=== PATIENT | male | born 1985 | race Caucasian/White ===

== ENCOUNTER 2016-08-06 16:55 | Emergency (ER) | payer OTHER ==
[2016-08-06 17:03] VITALS: BMI 35.2
--- NOTE | 2016-08-06 17:59 | PDOC ---
History of Present Illness - General History Source: Patient Exam Limitations: No Limitations - History of Present Illness Initial Comments: 08/06/16 17:55 31-year-old male with history of diabetes and peripheral neuropathy presents with wound to the base of his right first toe which he noted today. Patient states sees a subscription crew leader every 2 weeks and had no wound at that time but states due to the neuropathy he is unsure if he bumped it versus slowly developed it over the last 2 weeks. Patient states glucose today ranged anywhere from 210- 270 but denies any fever, chills, radiation of pain, or drainage from the wound. Patient does state mild redness to the side of first toe. Timing/Duration: unsure Severity: mild Associated Symptoms: reports: denies symptoms <Tiana Gill - Last Filed: 08/06/16 17:55> <Sophia Blackmon - Last Filed: 08/06/16 20:49> - General Chief Complaint: Wound Stated Complaint: WOUND INFECTION Time Seen by Provider: 08/06/16 17:26 Past History - Past Medical History Anemia: No Asthma: Yes Cancer: No Cardiac Disorders: No CVA: No COPD: No CHF: No Dementia: No Diabetes: Yes GI Disorders: No Disorders: No HTN: No Hypercholesterolemia: Yes Liver Disease: No Psychiatric Problems: Yes (depression/anxiety) Suicide Attempt (Hx): No Seizures: No Thyroid Disease: No - Surgical History Abdominal Surgery: No Appendectomy: No Cardiac Surgery: No Cholecystectomy: No Lung Surgery: No Neurologic Surgery: No Orthopedic Surgery: Yes (07/14 right knee arthroscopy) - Immunization History Immunization Up to Date: Yes - Psycho/Social/Smoking Cessation Hx Anxiety: Yes Suicidal Ideation: No Smoking Status: No Smoking History: Former smoker Have you smoked in the past 12 months: No Number of Cigarettes Smoked Daily: 40 If you are a former smoker, when did you quit?: 2009 Information on smoking cessation initiated: No Hx Alcohol Use: No Drug/Substance Use Hx: No Substance Use Type: None Hx Substance Use Treatment: No Patient Lives Alone: No Lives with/in: spouse/SO <iTana Gill - Last Filed: 08/06/16 17:55> <Sophia Blackmon - Last Filed: 08/06/16 20:49> - Past Medical History Allergies/Adverse Reactions: Allergies Allergy/AdvReac Type Severity Reaction Status Date / Time No Known Allergies Allergy Verified 08/06/16 17:00 Home Medications: Ambulatory Orders Atorvastatin Ca [Lipitor] 80 mg PO HS 01/03/15 Aspirin [Aspirin EC] 81 mg PO DAILY 03/02/15 Escitalopram Oxalate [Lexapro -] 20 mg PO DAILY 07/25/15 Lisinopril 10 mg PO DAILY 07/25/15 Bupropion HCl [Wellbutrin Xl] 300 mg PO DAILY 06/03/16 Quetiapine Fumarate [Seroquel] 300 mg PO DAILY 06/03/16 Cephalexin [Keflex] 500 mg PO Q8H #30 capsule 08/06/16 Review of Systems - Review of Systems Able to Perform ROS?: Yes Constitutional: No: Symptoms Reported Cardiac (ROS): No: Symptoms Reported Musculoskeletal: No: Symptoms Reported Integumentary: Yes: See HPI Neurological: No: Symptoms reported Endocrine: No: Symptoms Reported Hematologic/Lymphatic: No: Symptoms Reported <Tiana Gill - Last Filed: 08/06/16 17:55> *Physical Exam - Vital Signs Last Vital Signs Temp Pulse Resp BP Pulse Ox 98.4 F 91 H 18 135/84 97 08/06/16 17:00 08/06/16 17:00 08/06/16 17:00 08/06/16 17:00 08/06/16 17:00 - Physical Exam General Appearance: Yes: Nourished, Appropriately Dressed. No: Apparent Distress Vascular Pulses: Dorsalis-Pedis (R): 2+, Doralis-Pedis (L): 2+ Extremity: positive: Normal Capillary Refill, Normal Range of Motion. negative : Normal Inspection (atient with calloused erythematous area over the base of right first toe with crust to Center. mild erythema to the lateral aspect of right first toe. No increased warmth no palpable fluctuance) Neurologic: positive: Motor Strength 5/5 (ambulatory) <Tiana Gill - Last Filed: 08/06/16 17:55> - Vital Signs Last Vital Signs Temp Pulse Resp BP Pulse Ox 98.4 F 91 H 18 135/84 97 08/06/16 17:00 08/06/16 17:00 08/06/16 17:00 08/06/16 17:00 08/06/16 17:00 <Sophia Blackmon - Last Filed: 08/06/16 20:49> ED Treatment Course - RADIOLOGY Radiology Studies Ordered: Category Date Time Status TOE(S) RIGHT [RAD] Stat Radiology 08/06/16 17:54 Ordered <Tiana Gill - Last Filed: 08/06/16 17:55> - LABORATORY CBC & Chemistry Diagram: 08/06/16 18:33 08/06/16 18:33 - ADDITIONAL ORDERS Additional order review: Laboratory Results 08/06/16 08/06/16 08/06/16 18:33 18:33 18:32 Sodium 138 Potassium 4.4 Chloride 98 Carbon Dioxide 33 H Anion Gap 7 L BUN 16 D Creatinine 0.8 Creat Clearance w eGFR > 60 Random Glucose 177 H D Lactic Acid 1.456 Calcium 9.2 Total Bilirubin 0.2 D AST 40 H D ALT 72 D Alkaline Phosphatase 83 Total Protein 7.1 Albumin 3.7 Urine Color Ltyellow Urine Appearance Clear Urine pH 5.0 Ur Specific [place] 1.024 Urine Protein Negative Urine Glucose (UA) 3+ H Urine Ketones Negative Urine Blood Negative Urine Nitrite Negative Urine Bilirubin Negative Urine Urobilinogen Negative Ur Leukocyte Esterase Negative 08/06/16 18:33 RBC 5.09 MCV 82.1 MCHC 32.9 RDW 14.6 MPV 8.6 Neutrophils % 63.2 Lymphocytes % 25.9 D Monocytes % 6.9 Eosinophils % 2.9 Basophils % 1.1 <Sophia Blackmon - Last Filed: 08/06/16 20:49> Medical Decision Making - Medical Decision Making 08/06/16 17:58 Patient with elevated glucose and right toe wound concerning for infection. Patient ordered for septic workup including an x-ray to rule out osteomyelitis. <Tiana Gill - Last Filed: 08/06/16 17:55> - Medical Decision Making 08/06/16 20:41 FOOT X-RAY NEG FOR FRACTURE/OSTEOMYELITIS/GAS. LOCALIZED CELLULITIS INFECTION NOTED. PATIENT HAS APPOINTMENT WITH STEAM ROOM ATTENDANT TOMORROW. PLAN: KEFLEX Q8HRS X 10 DAYS STEAM ROOM ATTENDANT F/U TOMORROW. PATIENT AGREES WITH PLAN. <Sophia Blackmon - Last Filed: 08/06/16 20:49> *DC/Admit/Observation/Transfer <Tiana Gill - Last Filed: 08/06/16 17:55> - Discharge Dispostion Admit: No <Sophia Blackmon - Last Filed: 08/06/16 20:49> Diagnosis at time of Disposition: Toe pain, right Cellulitis Qualifiers: Site of cellulitis: extremity Site of cellulitis of extremity: toe Laterality: right Qualified Code(s): L03.031 - Cellulitis of right toe - Discharge Dispostion Disposition: HOME Condition at time of disposition: Stable - Prescriptions Prescriptions: Cephalexin [Keflex] 500 mg PO Q8H #30 capsule - Patient Instructions Printed Discharge Instructions: DI for Cellulitis -- Adult Additional Instructions: FOLLOW UP WITH STEAM ROOM ATTENDANT DISCUSSED TOMORROW. TAKE YOU MEDICATIONS PRESCRIBED. PLEASE WEAR SLIPPERS OR SHOES AT ALL TIMES. DO NOT WALK BAREFOOT. RETURN IF YOUR SYMPTOMS WORSEN. Print Language: GREENLANDIC
[2016-08-06 18:56] LABS: BASOPHIL 1.1 % (0-2.0); EOSINOPHIL 2.9 % (0-4.5); MCHC 32.9 g/dl (32.0-35.9); MEAN CELL VOLUME 82.1 fl (80-96); MEAN PLT VOLUME 8.6 fl (7.5-11.1); NEUTROPHILS 63.2 % (42.8-82.8); PLATELET COUNT 236 K/MM3 (134-434); RDW 14.6 % (11.9-15.9)
[2016-08-06 19:32] LABS: URINE APPEARANCE CLEAR; URINE BILIRUBIN NEGATIVE (NEGATIVE); URINE BLOOD NEGATIVE (NEGATIVE); URINE COLOR LTYELLOW; URINE GLUCOSE (UA) 3+ (NEGATIVE); URINE KETONE NEGATIVE (NEGATIVE); URINE LEUK ESTERASE NEGATIVE (NEGATIVE); URINE NITRITE NEGATIVE (NEGATIVE); URINE PROTEIN NEGATIVE (NEGATIVE); URINE UROBILINOGEN NEGATIVE E.U./dl (0.2-1.0)
[2016-08-06 19:43] LABS: ALBUMIN 3.7 g/dl (3.4-5.0); ALK PHOS 83 U/L (45-117); ANION GAP 7 (8-16); BILIRUBIN,TOTAL 0.2 mg/dL (0.2-1.0); CALCIUM 9.2 mg/dL (8.5-10.1); CO2 33 mmol/L (21-32); CREATININE 0.8 mg/dL (0.7-1.3); GLUCOSE,RANDOM 177 mg/dL (74-106); SGOT/AST 40 U/L (15-37); SGPT/ALT 72 U/L (12-78); TOT PROT 7.1 g/dl (6.4-8.2)
[2016-08-06] MEDS ORDERED: CEPHALEXIN MONOHYDRATE 500 MG CAPSULE (UD) PO ONE (20:49)
[2016-08-06] MEDS ORDERED: CEPHALEXIN MONOHYDRATE 250 MG CAPSULE (FP) ONE (21:05)
[2016-08-06 21:14] VITALS: BP 132/80; PULSE 88; TEMP 97.9
== END 2016-08-06 21:11 | disposition home or self-care (01) ==
LOC: JER 16:55
DX: L03.031 Cellulitis of right toe (principal); E11.9 Type 2 diabetes mellitus without complications; E78.00 Pure hypercholesterolemia, unspecified; F41.8 Other specified anxiety disorders; J45.909 Unspecified asthma, uncomplicated
CPT/HCPCS: 36415; 73660-TC; 80053; 81003; 83605; 85025; 87040; 99282-25

== ENCOUNTER 2016-12-17 17:19 | Inpatient (IN) | payer OTHER ==
--- NOTE | 2016-12-17 17:22 | PDOC ---
Rapid Medical Evaluation Time Seen by Provider: 12/17/16 17:20 Medical Evaluation: Allergies Allergy/AdvReac Type Severity Reaction Status Date / Time No Known Allergies Allergy Verified 12/17/16 17:20 12/17/16 17:20 I have performed a brief in-person evaluation of this patient. The patient presents with a chief complaint of: diabetic/ foot ulcer/ sent by software design manager Pertinent physical exam findings: right foot great toe ulcer since May 2016 The patient will proceed to the ED for further evaluation. Pt sent into ER by [address] Justice for right great toe ulcer. Glucose: 201 today x1h ago (checked at home) [facility] Justice: [facility]/ Dr. Monroy sent pt in for IV abx and ?admission Pt has been hospitalized for his right Great toe x6 months ago. Dx with Right great toe Diabetic/Ulcer after stepping on a nail CBC/diff Chem Lactic acid Right foot xray
[2016-12-17 17:24] VITALS: BMI 36.6
[2016-12-17 17:49] LABS: BASOPHIL 1.1 % (0-2.0); EOSINOPHIL 2.4 % (0-4.5); MCH 27.9 pg (25.7-33.7); MCHC 32.9 g/dl (32.0-35.9); MEAN CELL VOLUME 84.6 fl (80-96); MEAN PLT VOLUME 8.3 fl (7.5-11.1); NEUTROPHILS 70.3 % (42.8-82.8); PLATELET COUNT 278 K/MM3 (134-434); WHITE BLOOD COUNT 10.6 K/mm3 (4.0-10.0)
[2016-12-17 18:28] LABS: ALBUMIN 4.2 g/dl (3.4-5.0); ALK PHOS 101 U/L (45-117); ANION GAP 7 (8-16); BILIRUBIN,TOTAL 0.3 mg/dL (0.2-1.0); CALCIUM 9.7 mg/dL (8.5-10.1); CO2 33 mmol/L (21-32); CREATININE 1.1 mg/dL (0.7-1.3); GLUCOSE,RANDOM 161 mg/dL (74-106); SGOT/AST 25 U/L (15-37); SGPT/ALT 41 U/L (12-78); TOT PROT 8.1 g/dl (6.4-8.2)
[2016-12-17] MEDS ORDERED: SODIUM CHLORIDE 0.9% 1000 ML INFUS.BAG IV ONE (19:58)
[2016-12-17] MEDS: VANCOMYCIN 2,000 MG in DEXTROSE 5%-WATER - 500 ML IVPB ONE ×2 (20:23→20:52)
[2016-12-17] MEDS ORDERED: ACETAMINOPHEN 1000 MG/100 ML VIAL (NON FORMULARY) IVPB ONE (21:16)
--- NOTE | 2016-12-17 21:16 | PDOC ---
History of Present Illness - General Chief Complaint: Wound Infection Stated Complaint: TOE PAIN Time Seen by Provider: 12/17/16 17:20 - History of Present Illness Initial Comments: 12/17/16 22:11 CHIEF COMPLAINT: diabetic foot ulcer HISTORY OF PRESENT ILLNESS: 31 yo M with hx of DM, HLD, HTN sent to ED by supervisor home energy consultant for concern of osteomyelitis. Patient reports that he stepped on a nail at the end of last year and was admitted for cellulitis and abscess of the R toe, but it has worsened and now he has an ulcer at the bottom of his R toe. He denies any fever, chills, nausea, vomiting, diarrhea. No recent travel or sick contacts. PAST MEDICAL HISTORY: as per HPI FAMILY HISTORY: Denies SOCIAL HISTORY: Former smoker, quit 2009. Denies alcohol, illicit drug use. SURGICAL HISTORY: Denies ALLERGIES: No known drug allergies REVIEW OF SYSTEMS General/Constitutional: Denies fever or chills. Cardiovascular: Denies chest pain or shortness of breath. Respiratory: Denies cough, wheezing, or hemoptysis. Gastrointestinal: Denies nausea, vomiting, diarrhea or constipation. Genitourinary: Denies dysuria, frequency, or change in urination. Musculoskeletal: Pain to R foot secondary to diabetic ulcer. Skin and breasts: Denies rash or easy bruising. Neurologic: Denies headache, vertigo, loss of consciousness, or loss of sensation. PHYSICAL EXAM General Appearance: Well-appearing, appropriately dressed. No apparent distress. HEENT: EOMI, PERRLA. Respiratory/Chest: Lungs CTAB. Cardiovascular: RRR. S1, S2. Gastrointestinal/Abdominal: Normal bowel sounds. Abdomen soft, non-distended. No tenderness or rebound tenderness. No organomegaly, pulsatile mass, guarding , hernia, hepatomegaly, splenomegaly. Lymphatic: No adenopathy, tenderness. Musculoskeletal/Extremities: 2 cm x 2 cm ulcer to plantar aspect of R hallux with erythema, mild edema. Normal inspection. FROM of all extremities, normal capillary refill. Pelvis Stable. No CVA tenderness. No tenderness to extremities, pedal edema, swelling, erythema or deformity. Integumentary: Appropriate color, dry, warm. No cyanosis, erythema, jaundice or rash Neurologic: aquatics director II-XII intact. Fully oriented, alert. Appropriate mood/affect. Motor strength 5/5. No appreciable EOM palsy, facial droop or sensory deficit. Past History - Past Medical History Allergies/Adverse Reactions: Allergies Allergy/AdvReac Type Severity Reaction Status Date / Time No Known Allergies Allergy Verified 12/17/16 20:06 Home Medications: Ambulatory Orders Escitalopram Oxalate [Lexapro -] 20 mg PO DAILY 07/25/15 Bupropion HCl [Wellbutrin Xl] 300 mg PO DAILY 06/03/16 Quetiapine Fumarate [Seroquel] 200 mg PO DAILY 06/03/16 Canagliflozin [Invokana] 100 mg PO DAILY 12/17/16 Insulin NPH Human Isophane [Humulin N] 0 unit SQ DAILY 12/17/16 Lamotrigine 200 mg PO DAILY 12/17/16 Loratadine 10 mg PO DAILY 12/17/16 Metformin HCl [Metformin HCl ER] 1,000 mg PO DAILY 12/17/16 Methotrexate [Mexate -] 2.5 mg PO Q7D 12/17/16 Omeprazole 40 mg PO DAILY 12/17/16 Prednisone [Deltasone -] 2.5 mg PO DAILY 12/17/16 Propranolol HCl 80 mg PO DAILY 12/17/16 Ranitidine HCl 300 mg PO DAILY 12/17/16 Rosuvastatin [Crestor -] 20 mg PO DAILY 12/17/16 Anemia: No Asthma: Yes Cancer: No Cardiac Disorders: No CVA: No COPD: No CHF: No Dementia: No Diabetes: Yes (IDDM/INSULIN PUMP) GI Disorders: No Disorders: No HTN: No Hypercholesterolemia: Yes Liver Disease: No Psychiatric Problems: Yes (depression/anxiety/BIPOLAR) Suicide Attempt (Hx): No Seizures: No Thyroid Disease: No Other medical history: R.A - Surgical History Abdominal Surgery: No Appendectomy: No Cardiac Surgery: No Cholecystectomy: No Lung Surgery: No Neurologic Surgery: No Orthopedic Surgery: Yes (07/14 right knee arthroscopy) - Immunization History Immunization Up to Date: Yes - Psycho/Social/Smoking Cessation Hx Anxiety: Yes Suicidal Ideation: No Smoking Status: No Smoking History: Never smoked Have you smoked in the past 12 months: No Number of Cigarettes Smoked Daily: 40 If you are a former smoker, when did you quit?: 2009 Information on smoking cessation initiated: No Hx Alcohol Use: No Drug/Substance Use Hx: No Substance Use Type: None Hx Substance Use Treatment: No *Physical Exam - Vital Signs Last Vital Signs Temp Pulse Resp BP Pulse Ox 98.0 F 101 H 18 132/88 100 12/17/16 17:21 12/17/16 17:21 12/17/16 17:21 12/17/16 17:21 12/17/16 19:25 ED Treatment Course - LABORATORY CBC & Chemistry Diagram: 12/17/16 17:00 12/17/16 17:00 - ADDITIONAL ORDERS Additional order review: Laboratory Results 12/17/16 12/17/16 17:30 17:00 Sodium 140 Potassium 4.3 Chloride 100 Carbon Dioxide 33 H Anion Gap 7 L BUN 17 Creatinine 1.1 D Creat Clearance w eGFR > 60 Random Glucose 161 H Lactic Acid 2.1 H* Calcium 9.7 Total Bilirubin 0.3 D AST 25 D ALT 41 D Alkaline Phosphatase 101 D Total Protein 8.1 Albumin 4.2 12/17/16 17:00 RBC 5.08 MCV 84.6 MCHC 32.9 RDW 15.0 MPV 8.3 Neutrophils % 70.3 Lymphocytes % 19.6 D Monocytes % 6.6 Eosinophils % 2.4 Basophils % 1.1 - Medications Given in the ED: ED Medications Discontinued Medications Generic Name Dose Route Start Last Admin Trade Name Freq PRN Reason Stop Dose Admin Sodium Chloride 1,000 ml 12/17/16 19:58 12/17/16 20:23 Normal Saline - IV 12/17/16 19:59 1,000 ml ONCE ONE Administration Medical Decision Making - Medical Decision Making 12/17/16 22:11 31 yo M with hx of DM sent to ED by supervisor home energy consultant for concern of osteomyelitis. VS remarkable for tachycardia of 101. -CBC, CMP, lactic acid, blood cultures, wound culture ordered in RME -X-ray of R foot WBC 10.6, lactic acid 2.1 -IVF -Vancomycin 1500mg IVPB Right foot x-ray results: Soft tissue swelling in right first toe with soft tissue defect, posteriorly consistent with clinical history of an ulcer. No gross bone destruction or periosteal elevation identified. MRI of right foot would be study of choice to r/o osteo. Read by Malick Torres MD. -Zosyn 3.375 IVPB Discussed case with admitting MD Beasley who recommends inpatient admission for r /o osteo. Will consult ID and podiatry. 12/18/16 04:23 *DC/Admit/Observation/Transfer Diagnosis at time of Disposition: Diabetic foot ulcer Qualifiers: Diabetic foot ulcer location: toe Diabetes mellitus type: type 2 Laterality: left Non-pressure ulcer stage: unspecified non-pressure ulcer stage Qualified Code(s): E11.621 - Type 2 diabetes mellitus with foot ulcer Cellulitis Qualifiers: Site of cellulitis: extremity Site of cellulitis of extremity: toe Laterality: left Qualified Code(s): L03.032 - Cellulitis of left toe Sepsis Qualifiers: Sepsis type: sepsis due to unspecified organism Qualified Code(s): A41.9 - Sepsis, unspecified organism - Discharge Dispostion Admit: Yes - Referrals
[2016-12-17] MEDS ORDERED: PIPERACILLIN/TAZOB 3.375 GM/50 ML PRE-DOCKED IV ONE (21:53)
--- NOTE | 2016-12-17 23:15 | PDOC ---
*Physical Exam - Vital Signs Last Vital Signs Temp Pulse Resp BP Pulse Ox 98.0 F 101 H 18 132/88 100 12/17/16 17:21 12/17/16 17:21 12/17/16 17:21 12/17/16 17:21 12/17/16 19:25 ED Treatment Course - LABORATORY CBC & Chemistry Diagram: 12/17/16 17:00 12/17/16 17:00 - ADDITIONAL ORDERS Additional order review: Laboratory Results 12/17/16 12/17/16 17:30 17:00 Sodium 140 Potassium 4.3 Chloride 100 Carbon Dioxide 33 H Anion Gap 7 L BUN 17 Creatinine 1.1 D Creat Clearance w eGFR > 60 Random Glucose 161 H Lactic Acid 2.1 H* Calcium 9.7 Total Bilirubin 0.3 D AST 25 D ALT 41 D Alkaline Phosphatase 101 D Total Protein 8.1 Albumin 4.2 12/17/16 17:00 RBC 5.08 MCV 84.6 MCHC 32.9 RDW 15.0 MPV 8.3 Neutrophils % 70.3 Lymphocytes % 19.6 D Monocytes % 6.6 Eosinophils % 2.4 Basophils % 1.1 - Medications Given in the ED: ED Medications Discontinued Medications Generic Name Dose Route Start Last Admin Trade Name Freq PRN Reason Stop Dose Admin Vancomycin HCl 2,000 mg/ 500 mls @ 250 mls/hr 12/17/16 20:05 12/17/16 20:52 Dextrose IVPB 12/17/16 22:04 250 mls/hr ONCE ONE Administration Protocol Sodium Chloride 1,000 ml 12/17/16 19:58 12/17/16 20:23 Normal Saline - IV 12/17/16 19:59 1,000 ml ONCE ONE Administration Medical Decision Making - Medical Decision Making 12/17/16 23:14 agree with care from MILVIA Bui *DC/Admit/Observation/Transfer Diagnosis at time of Disposition: Diabetic foot ulcer Qualifiers: Diabetic foot ulcer location: toe Diabetes mellitus type: type 2 Laterality: left Non-pressure ulcer stage: unspecified non-pressure ulcer stage Qualified Code(s): E11.621 - Type 2 diabetes mellitus with foot ulcer Cellulitis Qualifiers: Site of cellulitis: extremity Site of cellulitis of extremity: toe Laterality: left Qualified Code(s): L03.032 - Cellulitis of left toe Sepsis Qualifiers: Sepsis type: sepsis due to unspecified organism Qualified Code(s): A41.9 - Sepsis, unspecified organism - Referrals Referrals: Hailee Carpenter [Primary Care Provider] - - Patient Instructions - Post Discharge Activity
[2016-12-17] MEDS ORDERED: PIPERACILLIN/TAZOB 3.375 GM 50 ML IVPB ONE (23:22)
[2016-12-17] MEDS: SODIUM CHLORIDE 1,000 ML IV SCH (23:31)
[2016-12-17] MEDS: HEPARIN NA (PORCINE) 5,000 UNITS/ML 1ML VIAL SQ SCH (23:32)
[2016-12-17] MEDS ORDERED: HEPARIN NA (PORCINE) 5,000 UNITS/ML 1ML VIAL ONE (23:33)
[2016-12-18] MEDS: SODIUM CHLORIDE 1,000 ML IV SCH ×2 (06:00→17:43)
[2016-12-18] MEDS: metFORMIN HCL 500 MG TABLET (FP) PO SCH (06:51)
[2016-12-18 07:24] LABS: MCH 28.6 pg (25.7-33.7); MEAN CELL VOLUME 84.3 fl (80-96); PLATELET COUNT 195 K/MM3 (134-434); RDW 15.1 % (11.9-15.9); WHITE BLOOD COUNT 7.8 K/mm3 (4.0-10.0)
[2016-12-18 08:26] LABS: ALBUMIN 3.1 g/dl (3.4-5.0); ALK PHOS 75 U/L (45-117); ANION GAP 8 (8-16); BILIRUBIN,TOTAL 0.3 mg/dL (0.2-1.0); CALCIUM 8.2 mg/dL (8.5-10.1); CO2 29 mmol/L (21-32); CREATININE 0.6 mg/dL (0.7-1.3); GLUCOSE,RANDOM 165 mg/dL (74-106); SGOT/AST 23 U/L (15-37); SGPT/ALT 32 U/L (12-78); TOT PROT 6.1 g/dl (6.4-8.2)
--- NOTE | 2016-12-18 09:20 | PN ---
Progress Note (short form) - Note Progress Note: ID consult dictated imp/reccd 31 year old man with diabetes since 2003, history of right great toe ulcer since May when he stepped on a nail- he was admitted here at [facility] and discharged with picc line on rocephin for 4 weeks and po amox for 2 weeks (group b strep and enterococcus in wound) He reports that ulcer stopped draining but never closed. He is followed by podiatry at [facility] and has been going weekly. over the last one month the toe has gotten more swollen and has started draining blood and pus from the ulcer. He reports the toe is painful as well. no fevers or chills no oral antibiotics diabetic toe infection r/o osteomyelitis/cellulitis suggest MRI esr/crp podiatry to see received vancomycin and zosyn in ED cultures pending continue vanco/zosyn Problem List - Problems (1) Diabetic foot ulcer Code(s): E11.621 - TYPE 2 DIABETES MELLITUS WITH FOOT ULCER L97.509 - NON-PRESSURE CHRONIC ULCER OTH PRT UNSP FOOT W UNSP SEVERITY Qualifiers: Diabetic foot ulcer location: toe Diabetes mellitus type: type 2 Laterality: left Non-pressure ulcer stage: unspecified non-pressure ulcer stage Qualified Code(s): E11.621 - Type 2 diabetes mellitus with foot ulcer ; L97.509 - Non-pressure chronic ulcer of other part of unspecified foot with unspecified severity (2) Osteomyelitis due to type 2 diabetes mellitus Code(s): E11.69 - TYPE 2 DIABETES MELLITUS WITH OTHER SPECIFIED COMPLICATION M86.9 - OSTEOMYELITIS, UNSPECIFIED
[2016-12-18] MEDS: ESCITALOPRAM OXALATE 20 MG TABLET (FP) PO SCH (09:34)
[2016-12-18] MEDS: RANITIDINE HCL 150 MG TABLET (FP) PO SCH (09:34)
[2016-12-18] MEDS: PANTOPRAZOLE 40 MG TABLET (FP) PO SCH (09:34)
[2016-12-18] MEDS: LORATADINE 10 MG TABLET PO SCH (09:34)
[2016-12-18] MEDS: HEPARIN NA (PORCINE) 5,000 UNITS/ML 1ML VIAL SQ SCH ×2 (09:34→21:47)
[2016-12-18] MEDS: PIPERACILLIN/TAZOB 3.375 GM/50 ML PRE-DOCKED IVPB SCH ×3 (09:35→17:42)
--- NOTE | 2016-12-18 09:51 | HP ---
Admitting History and Physical - Primary Care Physician PCP: Gonzalo Ashley - Admission Chief Complaint: WORSENING RIGHT TOE ULCER History of Present Illness: 31 Y/O MALE HISTORY OF DIABETIC/LIPIDEMIA/RA/OBESE HERE WITH WORSENING RIGHT TOE ULCER, HAS NOT IMPROVED. HE HAS BEEN SEEING A UTILITY BILL COLLECTOR AT [facility] WHO SENT HIM HERE FOR TREATMENT. History Source: Patient - Past Medical History Cardiovascular: Yes: Hyperlipdemia. No: AFIB, Aneurysm, Aortic Insufficiency, Aortic Stenosis, CAD, CHF, Deep Vein Thrombosis, HTN, [place], Mitral Insufficiency, Mitral Stenosis, Murmur, Pulmonary Hypertension, Other Pulmonary: Yes: Asthma Rheumatology: Yes: Rheumatoid Arthritis Endocrine: Yes: Diabetes Mellitus - Past Surgical History Past Surgical History: Yes: None - Smoking History Smoking history: Never smoked Have you smoked in the past 12 months: No Aproximately how many cigarettes per day: 40 If you are a former smoker, when did you quit?: 2009 - Alcohol/Substance Use Hx Alcohol Use: No - Social History ADL: Independent History of Recent Travel: No Home Medications - Allergies Allergies/Adverse Reactions: Allergies Allergy/AdvReac Type Severity Reaction Status Date / Time No Known Allergies Allergy Verified 12/17/16 20:06 - Home Medications Home Medications: Ambulatory Orders Escitalopram Oxalate [Lexapro -] 20 mg PO DAILY 07/25/15 Bupropion HCl [Wellbutrin Xl] 300 mg PO DAILY 06/03/16 Quetiapine Fumarate [Seroquel] 200 mg PO DAILY 06/03/16 Canagliflozin [Invokana] 100 mg PO DAILY 12/17/16 Insulin NPH Human Isophane [Humulin N] 0 unit SQ DAILY 12/17/16 Lamotrigine 200 mg PO DAILY 12/17/16 Loratadine 10 mg PO DAILY 12/17/16 Metformin HCl [Metformin HCl ER] 1,000 mg PO DAILY 12/17/16 Methotrexate [Mexate -] 2.5 mg PO Q7D 12/17/16 Omeprazole 40 mg PO DAILY 12/17/16 Prednisone [Deltasone -] 2.5 mg PO DAILY 12/17/16 Propranolol HCl 80 mg PO DAILY 12/17/16 Ranitidine HCl 300 mg PO DAILY 12/17/16 Rosuvastatin [Crestor -] 20 mg PO DAILY 12/17/16 Family Disease History - Family Disease History Family Disease History: Heart Disease: Mother Review of Systems - Review of Systems Constitutional: reports: Night Sweats Eyes: reports: No Symptoms HENT: reports: No Symptoms Neck: reports: No Symptoms Cardiovascular: reports: No Symptoms Respiratory: reports: No Symptoms Gastrointestinal: reports: Diarrhea Genitourinary: reports: No Symptoms Musculoskeletal: reports: Decreased ROM, Joint Pain, Joint Swelling, Muscle Pain , Muscle Weakness Integumentary: reports: Wound Neurological: reports: No Symptoms Endocrine: reports: No Symptoms Hematology/Lymphatic: reports: No Symptoms Physical Examination Vital Signs: Vital Signs Temperature 98.7 F 12/18/16 09:05 Pulse Rate 90 12/18/16 09:05 Respiratory Rate 16 12/18/16 09:05 Blood Pressure 146/83 12/18/16 09:05 O2 Sat by Pulse Oximetry (%) 98 12/18/16 00:56 Constitutional: Yes: Mild Distress Eyes: Yes: WNL HENT: Yes: WNL Neck: Yes: WNL Cardiovascular: Yes: WNL Respiratory: Yes: WNL Gastrointestinal: Yes: WNL Renal/: Yes: WNL Musculoskeletal: Yes: Joint Stiffness Extremities: Yes: Deformity Peripheral Pulses WNL: Yes Integumentary: Yes: Erythema, Pressure Ulcer, Skin Tear Wound/Incision: Yes: Open to air, Dressing Removed, Excoriated, Unapproximated Neurological: Yes: WNL ...Motor Strength: WNL Psychiatric: Yes: WNL Labs: CBC, BMP 12/18/16 06:30 12/18/16 06:30 Problem List - Problems (1) Cellulitis Code(s): L03.90 - CELLULITIS, UNSPECIFIED Qualifiers: Site of cellulitis: extremity Site of cellulitis of extremity: toe Laterality: left Qualified Code(s): L03.032 - Cellulitis of left toe (2) Diabetic foot ulcer Code(s): E11.621 - TYPE 2 DIABETES MELLITUS WITH FOOT ULCER L97.509 - NON-PRESSURE CHRONIC ULCER OTH PRT UNSP FOOT W UNSP SEVERITY Qualifiers: Diabetic foot ulcer location: toe Diabetes mellitus type: type 2 Laterality: left Non-pressure ulcer stage: unspecified non-pressure ulcer stage Qualified Code(s): E11.621 - Type 2 diabetes mellitus with foot ulcer ; L97.509 - Non-pressure chronic ulcer of other part of unspecified foot with unspecified severity Assessment/Plan IV ABX ID CONSULT MRI R/O OSTEOMYELITIS DIABETES SSI/EDUCATION WOUND CARE PODIATRY EVAL
[2016-12-18] MEDS ORDERED: predniSONE 2.5 MG TABLET PO SCH (10:00)
[2016-12-18] MEDS: ACETAMINOPHEN 325 MG TABLET (FP) PO PRN (10:41)
[2016-12-18 11:48] LABS: CHOLESTEROL 150 mg/dL (50-200); LDL CHOLESTEROL (ONLY SJRH) 66 mg/dL (5-100)
[2016-12-18] MEDS: QUEtiapine FUMARATE 200 MG TABLET PO SCH (12:07)
[2016-12-18] MEDS: lamoTRIgine 100 MG TABLET (FP) PO SCH (12:07)
[2016-12-18] MEDS: predniSONE 5 MG TABLET (UD) PO SCH (12:07)
--- NOTE | 2016-12-18 12:10 | CONSULT ---
Consult - text type - Consultation Consultation Note: Podiatry Consultation: 31 year old IDDM M presents for admission after being sent to ED by his outside motion picture printer for worsening R great toe ulcer and redness/swelling. Patient states that he developed wound May 2016 after stepping on a nail while walking barefoot at home. Wound has progressively worsened and for the past few days has had increased redness/swelling. Denies F/V/N/C/SOB/CP. Currently afebrile, VSS. PMHx: IDDM, HLP, rheumatoid arthritis Meds: noted in chart ALL: NKMA RICHARD: R foot: pedal pulses 1/4, TG wnl, CFT brisk to all toes. There is a R great toe plantar IPJ ulcer with fibrogranular wound base, hyperkeratotic borders, probes approximately 0.7 cm, no probing to bone, no purulence, no fluctuance, mild periwound erythema, no ascending cellulitis, no signs of active infection. No tenderness to palpation. Blood Cx: pending Wound Cx: pending WBC: 7.8 R foot XR: no evidence of osteomyelitis Imp: 31 year old IDDM with R great toe DM ulcer 1. IV abx per ID 2. Rx santyl + DSD R foot 3. Partial WB R heel with surgical shoe 4. Agree with MRI R foot 5. May need PICC if MRI (+) 6. Needs tight glycemic control 7. Thanks for the courtesy of this consult. Praveena Shaffer DPM
[2016-12-18] MEDS: VANCOMYCIN 1,250 MG in DEXTROSE 5%-WATER - 250 ML IVPB SCH ×2 (12:17→21:47)
--- NOTE | 2016-12-18 13:11 | CONS ---
DATE OF CONSULTATION: DATE OF DICTATION: 12/18/2016 REQUESTING PHYSICIAN: Mil Beasley MD HISTORY OF PRESENT ILLNESS: This is a 31-year-old man with the history of diabetes. He has been diabetic since 2003. He is a nonsmoker. Back in May, he stepped on a nail and he subsequently presented a week later to the hospital with an ulcer on the plantar surface of his right first toe. He was admitted for several days in the hospital. He had an MRI, which was suggestive of possible early osteomyelitis. Wound culture grew group B strep and Enterococcus and he was seen by Podiatry as well, who felt he did not require any operative debridement. He was discharged home with a PICC line on 4 weeks of ceftriaxone and 2 weeks of oral amoxicillin. He was followed up as an outpatient by his workers compensation examiner, who is at [facility], who he reports seeing weekly. He reports the drainage resolved from the toe, but the ulcer never closed. He was seeing his workers compensation examiner, who apparently has routinely been debriding the ulcer and about a month ago, he noted that same toe became more swollen and painful. About 2 weeks ago, he started having drainage once again. He describes a bloody purulent drainage, as well as associated pain over the course of the last month. He has had no fevers or chills, otherwise he felt well. About a month ago, he was diagnosed with rheumatoid arthritis and started on low-dose prednisone 2.5 mg a day and weekly methotrexate. ALLERGIES: He has no known drug allergies. MEDICATIONS: His medications as an outpatient include: 1. Lamotrigine. 2. Propranolol. 3. Prednisone 2.5 mg daily. 4. Methotrexate weekly. 5. Crestor. 6. Loratadine. 7. Invokana. 8. Metformin. 9. Insulin, which he has insulin pump. 10. Seroquel. 11. Omeprazole. 12. Ranitidine. 13. Lexapro. 14. Wellbutrin. PAST MEDICAL HISTORY: Notable for diabetes since 2003. He has a history of hyperlipidemia and depression. He has a history of mild asthma. Recent diagnosis of rheumatoid arthritis. SURGICAL HISTORY: Notable for he has had right knee arthroscopy for removal of a foreign body and he has had surgery on his left hand 4th and 5th fingers for trigger finger. FAMILY HISTORY: Notable for diabetes on both sides of his family. SOCIAL HISTORY: He is a former smoker. He quit in 2009. He lives at home with his and 3 children. He has not worked in the last year. There has been no recent travel. He has had no sick contacts. PHYSICAL EXAMINATION: General: He is awake and alert. Vitals: Temperature is 98.7, pulse of 90, blood pressure 146/83, respiratory rate 16. He weighs 270 pounds. O2 saturation is 98% on room air. HEENT: He is normocephalic. His eyes are anicteric. Neck: His neck is supple. Lungs: Clear to auscultation. Heart: Regular rate and rhythm. Abdomen: Soft, nontender. Extremities: Warm. He has palpable pulses. He has swelling diffusely of his right great toe with a plantar ulcer on the sole, which has minimal blood tinged drainage. There is no associated odor. LABORATORY: His labs are notable for a white count of 10.6 on admission, today 7.8; hemoglobin 13.4, platelets are 195. Labs this morning: BUN and creatinine are 12 and 0.6; the glucose of 165, lactic acid was 2.1 on admission. Blood and wound cultures are all pending at this time. X-ray of the foot show soft tissue swelling, but no gross bony destruction. In summary, this is a 31-year-old man with a chronic plantar ulcer that has been now associated with 1 month of swelling of the toe and pain associated with erythema and drainage for the last 2 weeks. Concerns would be recurrent osteomyelitis, as well as some mild cellulitis. I would suggest we repeat an MRI of the foot, obtain a sed rate, CRP. I would have Podiatry see him. He received vancomycin and Zosyn in the emergency room with cultures pending. I would continue the same antibiotic coverage. Further recommendations to follow. Lynda [id number] cc: Mil Beasley MD
[2016-12-18] MEDS ORDERED: ROSUVASTATIN CA 10 MG TABLET (FP) ONE (21:21)
[2016-12-18] MEDS ORDERED: PT OWN MED DRAWER 7, Y5N ONE (21:22)
[2016-12-18] MEDS: ROSUVASTATIN CA 20 MG TABLET (FP) PO SCH (21:48)
[2016-12-19] MEDS: PIPERACILLIN/TAZOB 3.375 GM/50 ML PRE-DOCKED IVPB SCH ×3 (01:27→17:20)
[2016-12-19] MEDS: SODIUM CHLORIDE 1,000 ML IV SCH ×3 (06:35→23:30)
[2016-12-19] MEDS: metFORMIN HCL 500 MG TABLET (FP) PO SCH (06:55)
[2016-12-19] MEDS: ACETAMINOPHEN 325 MG TABLET (FP) PO PRN ×2 (08:34→15:39)
[2016-12-19] MEDS ORDERED: PT OWN MED DRAWER 7, Y5N ONE ×3 (08:58→23:15)
[2016-12-19] MEDS: LORATADINE 10 MG TABLET PO SCH (09:01)
[2016-12-19] MEDS: predniSONE 5 MG TABLET (UD) PO SCH (09:02)
[2016-12-19] MEDS: HEPARIN NA (PORCINE) 5,000 UNITS/ML 1ML VIAL SQ SCH ×2 (09:04→21:15)
[2016-12-19] MEDS: ESCITALOPRAM OXALATE 20 MG TABLET (FP) PO SCH (09:04)
[2016-12-19] MEDS: PANTOPRAZOLE 40 MG TABLET (FP) PO SCH (09:04)
[2016-12-19] MEDS: RANITIDINE HCL 150 MG TABLET (FP) PO SCH (09:05)
--- NOTE | 2016-12-19 09:16 | PN ---
Progress Note, Physician Chief Complaint: ID Vancomycin Zosyn No complaints - Current Medication List Current Medications: Active Medications Acetaminophen (Tylenol -) 650 mg PO Q4H PRN PRN Reason: FEVER OR PAIN Last Admin: 12/19/16 08:34 Dose: 650 mg Bupropion HCl (Wellbutrin Xl -) 300 mg PO DAILY [facility] Last Admin: 12/18/16 12:07 Dose: 300 mg Collagenase (Santyl -) 1 applic TP DAILY [facility] Escitalopram Oxalate (Lexapro -) 20 mg PO DAILY [facility] Last Admin: 12/19/16 09:04 Dose: 20 mg Heparin Sodium (Porcine) (Heparin -) 5,000 unit SQ BID [facility] Last Admin: 12/19/16 09:04 Dose: 5,000 unit Sodium Chloride (Normal Saline -) 1,000 mls @ 100 mls/hr IV ASDIR [facility] Last Admin: 12/19/16 06:35 Dose: 100 mls/hr Vancomycin HCl 1,250 mg/ (Dextrose) 250 mls @ 166.667 mls/hr IVPB BID [facility] PRN Reason: Protocol Last Admin: 12/18/16 21:47 Dose: 166.667 mls/hr Lamotrigine (Lamictal -) 200 mg PO DAILY [facility] Last Admin: 12/18/16 12:07 Dose: 200 mg Loratadine (Claritin -) 10 mg PO DAILY [facility] Last Admin: 12/19/16 09:01 Dose: 10 mg Metformin HCl (Glucophage -) 1,000 mg PO AM [facility] Last Admin: 12/19/16 06:55 Dose: 1,000 mg Pantoprazole Sodium (Protonix -) 40 mg PO DAILY [facility] Last Admin: 12/19/16 09:04 Dose: 40 mg Piperacillin Sod/Tazobactam Sod (Zosyn 3.375gm Ivpb (Pre-Docked)) 3.375 gm IVPB Q8H-IV [facility] PRN Reason: Protocol Last Admin: 12/19/16 01:27 Dose: 3.375 gm Prednisone (Deltasone -) 2.5 mg PO DAILY [facility] Last Admin: 12/19/16 09:02 Dose: 2.5 mg Propranolol HCl (Inderal La -) 80 mg PO DAILY [facility] Last Admin: 12/19/16 09:03 Dose: 80 mg Quetiapine Fumarate (Seroquel -) 200 mg PO DAILY [facility] Last Admin: 12/18/16 12:07 Dose: 200 mg Ranitidine HCl (Zantac -) 300 mg PO DAILY [facility] Last Admin: 12/19/16 09:05 Dose: 300 mg Rosuvastatin Calcium (Crestor -) 20 mg PO HS [facility] Last Admin: 12/18/16 21:48 Dose: 20 mg - Objective Vital Signs: Vital Signs Temperature 97.7 F 12/19/16 07:39 Pulse Rate 73 12/19/16 07:39 Respiratory Rate 20 12/19/16 07:39 Blood Pressure 102/58 12/19/16 07:39 O2 Sat by Pulse Oximetry (%) 98 12/18/16 21:00 Constitutional: Yes: Well Nourished, No Distress HENT: Yes: WNL, Atraumatic Neck: Yes: WNL, Supple Respiratory: Yes: WNL, Regular, CTA Bilaterally Extremities: Yes: Other (Toe ulcer) Labs: CBC, BMP 12/18/16 06:30 12/18/16 06:30 Assessment/Plan Microbiology 12/17/16 17:30 Blood - Peripheral Venous Blood Culture - Preliminary NO GROWTH OBTAINED AFTER 24 HOURS, INCUBATION TO CONTINUE FOR 4 DAYS. 12/17/16 17:00 Blood - Peripheral Venous Blood Culture - Preliminary NO GROWTH OBTAINED AFTER 24 HOURS, INCUBATION TO CONTINUE FOR 4 DAYS. Laboratory Tests 12/18/16 12/18/16 12/19/16 06:30 06:30 07:00 WBC 7.8 Hgb 13.4 Hct 39.3 Plt Count 195 D ESR BUN 12 D Creatinine 0.6 L D C-Reactive Protein Pending 12/19/16 07:00 WBC Hgb Hct Plt Count ESR Pending BUN Creatinine C-Reactive Protein Assessment SSTI ruling out osteomyelitis Plan Antibiotics Vanco Zosyn ESR CRP MRI Wound culture Delphine FELIX
[2016-12-19] MEDS: lamoTRIgine 100 MG TABLET (FP) PO SCH (10:15)
[2016-12-19] MEDS: QUEtiapine FUMARATE 200 MG TABLET PO SCH (10:16)
[2016-12-19] MEDS: VANCOMYCIN 1,250 MG in DEXTROSE 5%-WATER - 250 ML IVPB SCH ×2 (10:17→21:14)
[2016-12-19 12:14] LABS: TROPONIN I < 0.02 ng/ml (0.00-0.05)
--- NOTE | 2016-12-19 12:24 | EKG ---
Test Reason : Blood Pressure : / mmHG Vent. Rate : 080 BPM Atrial Rate : 080 BPM P-R Int : 184 ms QRS Dur : 084 ms QT Int : 370 ms P-R-T Axes : 058 078 067 degrees QTc Int : 426 ms NORMAL SINUS RHYTHM NORMAL ECG WHEN COMPARED WITH ECG OF 03-JUN-2016 14:17, NO SIGNIFICANT CHANGE WAS FOUND Confirmed by NIKOLAY MCMAHON MD ([id number]) on 12/19/2016 12:23:54 PM Referred By: GONZALEZ ROBERTS Confirmed By:NIKOLAY MCMAHON MD
[2016-12-19] MEDS: COLLAGENASE CLOSTRIDIUM HIST. 30 GRAMS TUBE TP SCH (15:10)
--- NOTE | 2016-12-19 16:01 | CON.CARD ---
Cardiology Consult (text) - Consultation Consultation Note: CC: CP 31 yo with h/o HL, HTN, obesity, IDDM, RA, asthma p/w worsening LE wound, hospital course complicated by CP has had right great toe ulcer since May when he stepped on a nail - s/p IV abx. Since treatment in May ulcer stopped draining but never closed. He is followed by podiatry at [facility] and has been going weekly. Over the last one month the toe has gotten more swollen and painful and has started draining blood and pus. This morning began experiencing chest heaviness at rest, constant ever since. Had longstanding history of symptoms of atypical chest discomfort. Last stress test for evaluation of these symptoms was 2012. Currently experiencing non- exertional symptoms every couple of months (possible increase in frequency from priors). Poor functional status: no exercise. Limiting SOSA/heart racing with walking up flight of stairs. Can walk up 7 stairs before needing to stop for these sx's in addtion to needing to stop due to pain in LE. no f/c/s, n/v/d, h/a, cough, congestion, rashes, visual disturbances no orthopnea pnd, le edema, palps, dizziness, bleeding. pmhx/pshx: per hpi Social hx: former smoker fam hx: mother heart disease ros: per hpi Ambulatory Orders Escitalopram Oxalate [Lexapro -] 20 mg PO DAILY 07/25/15 Bupropion HCl [Wellbutrin Xl] 300 mg PO DAILY 06/03/16 Quetiapine Fumarate [Seroquel] 200 mg PO DAILY 06/03/16 Canagliflozin [Invokana] 100 mg PO DAILY 12/17/16 Insulin NPH Human Isophane [Humulin N] 0 unit SQ DAILY 12/17/16 Lamotrigine 200 mg PO DAILY 12/17/16 Loratadine 10 mg PO DAILY 12/17/16 Metformin HCl [Metformin HCl ER] 1,000 mg PO DAILY 12/17/16 Methotrexate [Mexate -] 2.5 mg PO Q7D 12/17/16 Omeprazole 40 mg PO DAILY 12/17/16 Prednisone [Deltasone -] 2.5 mg PO DAILY 12/17/16 Propranolol HCl 80 mg PO DAILY 12/17/16 Ranitidine HCl 300 mg PO DAILY 12/17/16 Rosuvastatin [Crestor -] 20 mg PO DAILY 12/17/16 Current Medications Acetaminophen (Tylenol -) 650 mg PO Q4H PRN PRN Reason: FEVER OR PAIN Last Admin: 12/19/16 15:39 Dose: 650 mg Bupropion HCl (Wellbutrin Xl -) 300 mg PO DAILY [facility] Last Admin: 12/19/16 11:56 Dose: 300 mg Collagenase (Santyl -) 1 applic TP DAILY [facility] Last Admin: 12/19/16 15:10 Dose: 1 applic Escitalopram Oxalate (Lexapro -) 20 mg PO DAILY [facility] Last Admin: 12/19/16 09:04 Dose: 20 mg Heparin Sodium (Porcine) (Heparin -) 5,000 unit SQ BID [facility] Last Admin: 12/19/16 09:04 Dose: 5,000 unit Sodium Chloride (Normal Saline -) 1,000 mls @ 100 mls/hr IV ASDIR [facility] Last Admin: 12/19/16 06:35 Dose: 100 mls/hr Vancomycin HCl 1,250 mg/ (Dextrose) 250 mls @ 166.667 mls/hr IVPB BID [facility] PRN Reason: Protocol Last Admin: 12/19/16 10:17 Dose: 166.667 mls/hr Lamotrigine (Lamictal -) 200 mg PO DAILY [facility] Last Admin: 12/19/16 10:15 Dose: 200 mg Loratadine (Claritin -) 10 mg PO DAILY [facility] Last Admin: 12/19/16 09:01 Dose: 10 mg Metformin HCl (Glucophage -) 1,000 mg PO AM [facility] Last Admin: 12/19/16 06:55 Dose: 1,000 mg Pantoprazole Sodium (Protonix -) 40 mg PO DAILY [facility] Last Admin: 12/19/16 09:04 Dose: 40 mg Piperacillin Sod/Tazobactam Sod (Zosyn 3.375gm Ivpb (Pre-Docked)) 3.375 gm IVPB Q8H-IV [facility] PRN Reason: Protocol Last Admin: 12/19/16 10:17 Dose: 3.375 gm Prednisone (Deltasone -) 2.5 mg PO DAILY [facility] Last Admin: 12/19/16 09:02 Dose: 2.5 mg Propranolol HCl (Inderal La -) 80 mg PO DAILY [facility] Last Admin: 12/19/16 09:03 Dose: 80 mg Quetiapine Fumarate (Seroquel -) 200 mg PO DAILY [facility] Last Admin: 12/19/16 10:16 Dose: 200 mg Ranitidine HCl (Zantac -) 300 mg PO DAILY [facility] Last Admin: 12/19/16 09:05 Dose: 300 mg Rosuvastatin Calcium (Crestor -) 20 mg PO HS [facility] Last Admin: 12/18/16 21:48 Dose: 20 mg Vital Signs - 24 hr 12/18/16 12/18/16 12/19/16 17:12 21:00 07:39 Temperature 97.9 F 97.7 F Pulse Rate 73 73 Respiratory 20 20 Rate Blood Pressure 107/59 102/58 O2 Sat by Pulse 98 Oximetry (%) 12/19/16 12/19/16 12/19/16 08:25 10:15 15:40 Temperature 98.2 F 98.3 F Pulse Rate 76 79 82 Respiratory 18 18 Rate Blood Pressure 137/81 146/88 112/52 O2 Sat by Pulse Oximetry (%) Intake & Output 12/17/16 12/18/16 12/19/16 12/20/16 07:59 07:59 07:59 07:59 Intake Total 200 3900 800 Balance 200 3900 800 Weight 270 lb nad, calm jvd flat, neck supple ctab, nl effort rrr nl s1, s2 no mrg no ttp of sternum + bs soft nt nd ext with trace edema. no cyanosis/clubbing aaox3 no carotid bruits diminished dp/pt no jaundice, + diaphoresis. CBC, BMP 12/18/16 06:30 12/18/16 06:30 Laboratory Tests 12/17/16 12/18/16 12/18/16 17:30 06:30 08:10 ESR Hemoglobin A1c % Lactic Acid 2.1 H* Total Bilirubin 0.3 AST 23 ALT 32 D Alkaline Phosphatase 75 D Creatine Kinase Troponin I C-Reactive Protein Albumin 3.1 L D Triglycerides 350 H Cholesterol 150 HDL Cholesterol 39 L 12/18/16 12/19/16 12/19/16 08:10 07:00 07:00 ESR 22 H Hemoglobin A1c % 10.5 H Lactic Acid Total Bilirubin AST ALT Alkaline Phosphatase Creatine Kinase Troponin I C-Reactive Protein 1.4 H Albumin Triglycerides Cholesterol HDL Cholesterol 12/19/16 11:45 ESR Hemoglobin A1c % Lactic Acid Total Bilirubin AST ALT Alkaline Phosphatase Creatine Kinase 100 Troponin I < 0.02 C-Reactive Protein Albumin Triglycerides Cholesterol HDL Cholesterol ekg wnl, no ischemic changes stress 2013: 10 METS, no ischemic ekg changes. nl perfusion, nl EF. 31 yo with h/o HL, HTN, obesity, IDDM, RA, childhood asthma p/w worsening LE wound, hospital course complicated by CP CP - atypical for cardiac pain, but patient with significant risk factors and low functional capacity to adequately assess for exertional sx's. Echo pending. Will plan on further evaluation with cardiac stress testing. - Martha neg x 1, EKG wnl. Con't HUMBERTO - ntg prn for CP. Con't propanolol. statin. Would start ASA htn - currently intermittently low on propanolol in setting of infection. Monitor closely HL - statin.
--- NOTE | 2016-12-19 16:58 | PN ---
Progress Note, Physician Chief Complaint: C/O CHEST PAIN THIS AM STAT EKG AND STAT CARDIAC LABS ORDERED CARDIO CONULT AND ECHO ALL ORDERED - Current Medication List Current Medications: Active Medications Acetaminophen (Tylenol -) 650 mg PO Q4H PRN PRN Reason: FEVER OR PAIN Last Admin: 12/19/16 15:39 Dose: 650 mg Bupropion HCl (Wellbutrin Xl -) 300 mg PO DAILY [facility] Last Admin: 12/19/16 11:56 Dose: 300 mg Collagenase (Santyl -) 1 applic TP DAILY [facility] Last Admin: 12/19/16 15:10 Dose: 1 applic Escitalopram Oxalate (Lexapro -) 20 mg PO DAILY [facility] Last Admin: 12/19/16 09:04 Dose: 20 mg Heparin Sodium (Porcine) (Heparin -) 5,000 unit SQ BID [facility] Last Admin: 12/19/16 09:04 Dose: 5,000 unit Sodium Chloride (Normal Saline -) 1,000 mls @ 100 mls/hr IV ASDIR [facility] Last Admin: 12/19/16 06:35 Dose: 100 mls/hr Vancomycin HCl 1,250 mg/ (Dextrose) 250 mls @ 166.667 mls/hr IVPB BID [facility] PRN Reason: Protocol Last Admin: 12/19/16 10:17 Dose: 166.667 mls/hr Lamotrigine (Lamictal -) 200 mg PO DAILY [facility] Last Admin: 12/19/16 10:15 Dose: 200 mg Loratadine (Claritin -) 10 mg PO DAILY [facility] Last Admin: 12/19/16 09:01 Dose: 10 mg Metformin HCl (Glucophage -) 1,000 mg PO AM [facility] Last Admin: 12/19/16 06:55 Dose: 1,000 mg Pantoprazole Sodium (Protonix -) 40 mg PO DAILY [facility] Last Admin: 12/19/16 09:04 Dose: 40 mg Piperacillin Sod/Tazobactam Sod (Zosyn 3.375gm Ivpb (Pre-Docked)) 3.375 gm IVPB Q8H-IV [facility] PRN Reason: Protocol Last Admin: 12/19/16 10:17 Dose: 3.375 gm Prednisone (Deltasone -) 2.5 mg PO DAILY [facility] Last Admin: 12/19/16 09:02 Dose: 2.5 mg Propranolol HCl (Inderal La -) 80 mg PO DAILY [facility] Last Admin: 12/19/16 09:03 Dose: 80 mg Quetiapine Fumarate (Seroquel -) 200 mg PO DAILY [facility] Last Admin: 12/19/16 10:16 Dose: 200 mg Ranitidine HCl (Zantac -) 300 mg PO DAILY [facility] Last Admin: 12/19/16 09:05 Dose: 300 mg Rosuvastatin Calcium (Crestor -) 20 mg PO HS [facility] Last Admin: 12/18/16 21:48 Dose: 20 mg - Objective Vital Signs: Vital Signs Temperature 98.3 F 12/19/16 15:40 Pulse Rate 82 12/19/16 15:40 Respiratory Rate 18 12/19/16 15:40 Blood Pressure 112/52 12/19/16 15:40 O2 Sat by Pulse Oximetry (%) 98 12/18/16 21:00 Constitutional: Yes: Mild Distress Eyes: Yes: WNL HENT: Yes: WNL Neck: Yes: WNL Cardiovascular: Yes: WNL Respiratory: Yes: WNL Gastrointestinal: Yes: WNL Genitourinary: Yes: WNL Musculoskeletal: Yes: Joint Swelling, Muscle Weakness Extremities: Yes: Deformity Edema: No Peripheral Pulses WNL: Yes Integumentary: Yes: Pressure Ulcer Wound/Incision: Yes: Dressing Dry and Intact Neurological: Yes: Pre-Existing Deficit ...Motor Strength: LLE, RLE Psychiatric: Yes: Other Labs: CBC, BMP 12/18/16 06:30 12/18/16 06:30 Problem List - Problems (1) Cellulitis Code(s): L03.90 - CELLULITIS, UNSPECIFIED Qualifiers: Site of cellulitis: extremity Site of cellulitis of extremity: toe Laterality: left Qualified Code(s): L03.032 - Cellulitis of left toe (2) Diabetic foot ulcer Code(s): E11.621 - TYPE 2 DIABETES MELLITUS WITH FOOT ULCER L97.509 - NON-PRESSURE CHRONIC ULCER OTH PRT UNSP FOOT W UNSP SEVERITY Qualifiers: Diabetic foot ulcer location: toe Diabetes mellitus type: type 2 Laterality: left Non-pressure ulcer stage: unspecified non-pressure ulcer stage Qualified Code(s): E11.621 - Type 2 diabetes mellitus with foot ulcer ; L97.509 - Non-pressure chronic ulcer of other part of unspecified foot with unspecified severity (3) Chest pain in adult Assessment/Plan: R/O ACUTE CORONARY SYNDROME Code(s): R07.9 - CHEST PAIN, UNSPECIFIED Assessment/Plan CARDIAC ENZYMES NEGATIVE CARDIO EVAL RISKS OF [place] CONCERNING, ECHO AND EKG ORDERED LIPID AND A1C HIGH ABOVE LIMITS, ENDOCRINE CONSULT ART SPECIALIST FOR EVAL AND EDUCATION WOUND CARE/MRI IV ABX
[2016-12-19] MEDS: INSULIN SLIDING SCALE (NOVOLOG) 1 VIAL SQ SCH ×2 (17:24→21:24)
[2016-12-19] MEDS ORDERED: ROSUVASTATIN CA 10 MG TABLET (FP) ONE (21:03)
[2016-12-19] MEDS: ROSUVASTATIN CA 20 MG TABLET (FP) PO SCH (21:14)
[2016-12-19] MEDS ORDERED: INSULIN (NOVOLOG) ASPART 100 UNITS/ML 10ML VIAL ONE (21:24)
[2016-12-20] MEDS: PIPERACILLIN/TAZOB 3.375 GM/50 ML PRE-DOCKED IVPB SCH ×4 (01:23→17:27)
--- NOTE | 2016-12-20 07:51 | PN ---
Progress Note, Physician Chief Complaint: CARDIOLOGY WORKUP IN PROGRESS WITH ECHO LABS AND EKG NO ACUTE CHANGES NO CHEST PAIN TODAY - Current Medication List Current Medications: Active Medications Acetaminophen (Tylenol -) 650 mg PO Q4H PRN PRN Reason: FEVER OR PAIN Last Admin: 12/19/16 15:39 Dose: 650 mg Aspirin (Ecotrin -) 81 mg PO DAILY [facility] Bupropion HCl (Wellbutrin Xl -) 300 mg PO DAILY [facility] Last Admin: 12/19/16 11:56 Dose: 300 mg Collagenase (Santyl -) 1 applic TP DAILY [facility] Last Admin: 12/19/16 15:10 Dose: 1 applic Escitalopram Oxalate (Lexapro -) 20 mg PO DAILY [facility] Last Admin: 12/19/16 09:04 Dose: 20 mg Heparin Sodium (Porcine) (Heparin -) 5,000 unit SQ BID [facility] Last Admin: 12/19/16 21:15 Dose: 5,000 unit Sodium Chloride (Normal Saline -) 1,000 mls @ 100 mls/hr IV ASDIR [facility] Last Admin: 12/19/16 23:30 Dose: Not Given Vancomycin HCl 1,250 mg/ (Dextrose) 250 mls @ 166.667 mls/hr IVPB BID [facility] PRN Reason: Protocol Last Admin: 12/19/16 21:14 Dose: 166.667 mls/hr Insulin Aspart (Novolog Vial Sliding Scale -) 1 vial SQ ACHS [facility] PRN Reason: Protocol Last Admin: 12/19/16 21:24 Dose: 6 units Lamotrigine (Lamictal -) 200 mg PO DAILY [facility] Last Admin: 12/19/16 10:15 Dose: 200 mg Loratadine (Claritin -) 10 mg PO DAILY [facility] Last Admin: 12/19/16 09:01 Dose: 10 mg Metformin HCl (Glucophage -) 1,000 mg PO AM [facility] Last Admin: 12/19/16 06:55 Dose: 1,000 mg Nitroglycerin (Nitrostat -) 0.3 mg SL Q5M PRN PRN Reason: FOR CHEST PAIN Pantoprazole Sodium (Protonix -) 40 mg PO DAILY [facility] Last Admin: 12/19/16 09:04 Dose: 40 mg Piperacillin Sod/Tazobactam Sod (Zosyn 3.375gm Ivpb (Pre-Docked)) 3.375 gm IVPB Q8H-IV [facility] PRN Reason: Protocol Last Admin: 12/20/16 01:23 Dose: 3.375 gm Prednisone (Deltasone -) 2.5 mg PO DAILY [facility] Last Admin: 12/19/16 09:02 Dose: 2.5 mg Propranolol HCl (Inderal La -) 80 mg PO DAILY [facility] Last Admin: 12/19/16 09:03 Dose: 80 mg Quetiapine Fumarate (Seroquel -) 200 mg PO DAILY [facility] Last Admin: 12/19/16 10:16 Dose: 200 mg Ranitidine HCl (Zantac -) 300 mg PO DAILY [facility] Last Admin: 12/19/16 09:05 Dose: 300 mg Rosuvastatin Calcium (Crestor -) 20 mg PO HS [facility] Last Admin: 12/19/16 21:14 Dose: 20 mg - Objective Vital Signs: Vital Signs Temperature 98.3 F 12/20/16 06:35 Pulse Rate 70 12/20/16 06:35 Respiratory Rate 20 12/20/16 06:35 Blood Pressure 121/70 12/20/16 06:35 O2 Sat by Pulse Oximetry (%) 98 12/19/16 21:00 Constitutional: Yes: No Distress Eyes: Yes: WNL HENT: Yes: WNL Neck: Yes: WNL Cardiovascular: Yes: WNL Respiratory: Yes: WNL Gastrointestinal: Yes: WNL Genitourinary: Yes: WNL Musculoskeletal: Yes: Muscle Weakness Extremities: Yes: Deformity Edema: Yes Edema: RLE: 1+ Peripheral Pulses WNL: Yes Integumentary: Yes: Pressure Ulcer Wound/Incision: Yes: Dressing Dry and Intact Neurological: Yes: Unsteady Gait ...Motor Strength: LLE, RLE Psychiatric: Yes: WNL Problem List - Problems (1) Cellulitis Code(s): L03.90 - CELLULITIS, UNSPECIFIED Qualifiers: Site of cellulitis: extremity Site of cellulitis of extremity: toe Laterality: left Qualified Code(s): L03.032 - Cellulitis of left toe (2) Diabetic foot ulcer Code(s): E11.621 - TYPE 2 DIABETES MELLITUS WITH FOOT ULCER L97.509 - NON-PRESSURE CHRONIC ULCER OTH PRT UNSP FOOT W UNSP SEVERITY Qualifiers: Diabetic foot ulcer location: toe Diabetes mellitus type: type 2 Laterality: left Non-pressure ulcer stage: unspecified non-pressure ulcer stage Qualified Code(s): E11.621 - Type 2 diabetes mellitus with foot ulcer ; L97.509 - Non-pressure chronic ulcer of other part of unspecified foot with unspecified severity (3) Chest pain in adult Code(s): R07.9 - CHEST PAIN, UNSPECIFIED Assessment/Plan IV ABX MRI R/O OSTEOMEYLITIS RIGHT LOWER EXTREMITY/FOOT ID F/U CARDIAC WORKUP ANGINA?
[2016-12-20] MEDS: INSULIN SLIDING SCALE (NOVOLOG) 1 VIAL SQ SCH ×4 (08:09→22:52)
[2016-12-20] MEDS: metFORMIN HCL 500 MG TABLET (FP) PO SCH (08:09)
[2016-12-20 08:28] LABS: BASOPHIL 0.3 % (0-2.0); EOSINOPHIL 3.3 % (0-4.5); MCH 28.2 pg (25.7-33.7); MCHC 33.4 g/dl (32.0-35.9); MEAN CELL VOLUME 84.5 fl (80-96); MEAN PLT VOLUME 8.1 fl (7.5-11.1); NEUTROPHILS 62.5 % (42.8-82.8); PLATELET COUNT 208 K/MM3 (134-434); RDW 15.1 % (11.9-15.9); WHITE BLOOD COUNT 6.6 K/mm3 (4.0-10.0)
[2016-12-20 08:53] LABS: ANION GAP 6 (8-16); CALCIUM 9.1 mg/dL (8.5-10.1); CO2 32 mmol/L (21-32); CREATININE 0.7 mg/dL (0.7-1.3); GLUCOSE,RANDOM 251 mg/dL (74-106); TROPONIN I < 0.02 ng/ml (0.00-0.05)
[2016-12-20] MEDS ORDERED: DIPYRIDAMOLE STRESS TEST 50 MG in DEXTROSE 5%-WATER - 40 ML IVPB ONE (10:30)
[2016-12-20] MEDS: ESCITALOPRAM OXALATE 20 MG TABLET (FP) PO SCH ×2 (11:02→13:08)
[2016-12-20] MEDS: lamoTRIgine 100 MG TABLET (FP) PO SCH (11:02)
[2016-12-20] MEDS: ASPIRIN COATED 81 MG TABLET.EC PO SCH ×2 (11:02→13:09)
[2016-12-20] MEDS: LORATADINE 10 MG TABLET PO SCH ×2 (11:02→13:09)
[2016-12-20] MEDS: predniSONE 5 MG TABLET (UD) PO SCH ×2 (11:02→13:08)
[2016-12-20] MEDS: VANCOMYCIN 1,250 MG in DEXTROSE 5%-WATER - 250 ML IVPB SCH (11:03)
[2016-12-20] MEDS: QUEtiapine FUMARATE 200 MG TABLET PO SCH (11:03)
[2016-12-20] MEDS: RANITIDINE HCL 150 MG TABLET (FP) PO SCH ×2 (11:03→13:09)
[2016-12-20] MEDS: PANTOPRAZOLE 40 MG TABLET (FP) PO SCH ×2 (11:03→13:09)
[2016-12-20] MEDS: COLLAGENASE CLOSTRIDIUM HIST. 30 GRAMS TUBE TP SCH (11:05)
[2016-12-20] MEDS: HEPARIN NA (PORCINE) 5,000 UNITS/ML 1ML VIAL SQ SCH ×3 (11:05→21:52)
[2016-12-20] MEDS ORDERED: AMINOPHYLLINE 250 MG/10 ML VIAL ONE (11:37)
--- NOTE | 2016-12-20 13:50 | PN ---
Progress Note, Physician Chief Complaint: ID Vancomycin Zosyn Afebrile No complaints - Current Medication List Current Medications: Active Medications Acetaminophen (Tylenol -) 650 mg PO Q4H PRN PRN Reason: FEVER OR PAIN Last Admin: 12/19/16 15:39 Dose: 650 mg Aspirin (Ecotrin -) 81 mg PO DAILY [facility] Last Admin: 12/20/16 13:09 Dose: 81 mg Bupropion HCl (Wellbutrin Xl -) 300 mg PO DAILY [facility] Last Admin: 12/20/16 11:03 Dose: Not Given Collagenase (Santyl -) 1 applic TP DAILY [facility] Last Admin: 12/20/16 11:05 Dose: Not Given Escitalopram Oxalate (Lexapro -) 20 mg PO DAILY [facility] Last Admin: 12/20/16 13:08 Dose: 20 mg Heparin Sodium (Porcine) (Heparin -) 5,000 unit SQ BID [facility] Last Admin: 12/20/16 13:08 Dose: 5,000 unit Sodium Chloride (Normal Saline -) 1,000 mls @ 100 mls/hr IV ASDIR [facility] Last Admin: 12/19/16 23:30 Dose: Not Given Vancomycin HCl 1,250 mg/ (Dextrose) 250 mls @ 166.667 mls/hr IVPB BID [facility] PRN Reason: Protocol Last Admin: 12/20/16 11:03 Dose: Not Given Insulin Aspart (Novolog Vial Sliding Scale -) 1 vial SQ ACHS [facility] PRN Reason: Protocol Last Admin: 12/20/16 13:07 Dose: 6 units Lamotrigine (Lamictal -) 200 mg PO DAILY [facility] Last Admin: 12/20/16 11:02 Dose: Not Given Loratadine (Claritin -) 10 mg PO DAILY [facility] Last Admin: 12/20/16 13:09 Dose: 10 mg Metformin HCl (Glucophage -) 1,000 mg PO AM [facility] Last Admin: 12/20/16 08:09 Dose: Not Given Nitroglycerin (Nitrostat -) 0.3 mg SL Q5M PRN PRN Reason: FOR CHEST PAIN Pantoprazole Sodium (Protonix -) 40 mg PO DAILY [facility] Last Admin: 12/20/16 13:09 Dose: 40 mg Piperacillin Sod/Tazobactam Sod (Zosyn 3.375gm Ivpb (Pre-Docked)) 3.375 gm IVPB Q8H-IV [facility] PRN Reason: Protocol Last Admin: 12/20/16 12:10 Dose: 3.375 gm Prednisone (Deltasone -) 2.5 mg PO DAILY [facility] Last Admin: 12/20/16 13:08 Dose: 2.5 mg Propranolol HCl (Inderal La -) 80 mg PO DAILY [facility] Last Admin: 12/20/16 13:09 Dose: 80 mg Quetiapine Fumarate (Seroquel -) 200 mg PO DAILY [facility] Last Admin: 12/20/16 11:03 Dose: Not Given Ranitidine HCl (Zantac -) 300 mg PO DAILY [facility] Last Admin: 12/20/16 13:09 Dose: 300 mg Rosuvastatin Calcium (Crestor -) 20 mg PO [facility] Last Admin: 12/19/16 21:14 Dose: 20 mg - Objective Vital Signs: Vital Signs Temperature 98.3 F 12/20/16 06:35 Pulse Rate 70 12/20/16 06:35 Respiratory Rate 20 12/20/16 06:35 Blood Pressure 121/70 12/20/16 06:35 O2 Sat by Pulse Oximetry (%) 98 12/19/16 21:00 Constitutional: Yes: Well Nourished, No Distress HENT: Yes: WNL, Atraumatic Neck: Yes: WNL, Supple Respiratory: Yes: WNL, Regular, CTA Bilaterally Gastrointestinal: Yes: WNL, Normal Bowel Sounds, Soft. No: Tenderness Extremities: Yes: Other (Right great toe ulcer) Labs: CBC, BMP 12/20/16 07:00 12/20/16 07:00 Assessment/Plan Microbiology 12/18/16 11:30 Toe - Right Hallux Gram Stain - Final 12/18/16 11:30 Toe - Right Hallux Wound Culture - Final Laboratory Tests 12/19/16 12/19/16 12/20/16 07:00 09:45 07:00 WBC 6.6 Hgb 13.2 Hct 39.6 Plt Count 208 ESR 22 H BUN Creatinine Vancomycin Pre-Dose 4.635 L 12/20/16 07:00 WBC Hgb Hct Plt Count ESR BUN 9 D Creatinine 0.7 Vancomycin Pre-Dose Assessment Ruling out osteo/ Right great toe plantar ulcer Mixed danielle with MSSA Plan Stop Vancomycin Zosyn to continue MRI pending Delphine FELIX
--- NOTE | 2016-12-20 18:17 | PN ---
Progress Note (short form) - Note Progress Note: CC: CP S: s/p stress test today. States he had reproduction of chest discomfort during injection. currently with minimal residual chest discomfort. No improvement with sL nitroglycerin. + diaphoresis, patient states this is chronic and normal for him. no sob, palps, dizziness Current Medications Acetaminophen (Tylenol -) 650 mg PO Q4H PRN PRN Reason: FEVER OR PAIN Last Admin: 12/19/16 15:39 Dose: 650 mg Aspirin (Ecotrin -) 81 mg PO DAILY [facility] Last Admin: 12/20/16 13:09 Dose: 81 mg Bupropion HCl (Wellbutrin Xl -) 300 mg PO DAILY [facility] Last Admin: 12/20/16 11:03 Dose: Not Given Collagenase (Santyl -) 1 applic TP DAILY [facility] Last Admin: 12/20/16 11:05 Dose: Not Given Escitalopram Oxalate (Lexapro -) 20 mg PO DAILY [facility] Last Admin: 12/20/16 13:08 Dose: 20 mg Heparin Sodium (Porcine) (Heparin -) 5,000 unit SQ BID [facility] Last Admin: 12/20/16 13:08 Dose: 5,000 unit Sodium Chloride (Normal Saline -) 1,000 mls @ 100 mls/hr IV ASDIR [facility] Last Admin: 12/19/16 23:30 Dose: Not Given Insulin Aspart (Novolog Vial Sliding Scale -) 1 vial SQ ACHS [facility] PRN Reason: Protocol Last Admin: 12/20/16 17:26 Dose: 6 units Lamotrigine (Lamictal -) 200 mg PO DAILY [facility] Last Admin: 12/20/16 11:02 Dose: Not Given Loratadine (Claritin -) 10 mg PO DAILY [facility] Last Admin: 12/20/16 13:09 Dose: 10 mg Metformin HCl (Glucophage -) 1,000 mg PO AM [facility] Last Admin: 12/20/16 08:09 Dose: Not Given Nitroglycerin (Nitrostat -) 0.3 mg SL Q5M PRN PRN Reason: FOR CHEST PAIN Last Admin: 12/20/16 19:04 Dose: 0.3 mg Pantoprazole Sodium (Protonix -) 40 mg PO DAILY [facility] Last Admin: 12/20/16 13:09 Dose: 40 mg Piperacillin Sod/Tazobactam Sod (Zosyn 3.375gm Ivpb (Pre-Docked)) 3.375 gm IVPB Q8H-IV [facility] PRN Reason: Protocol Last Admin: 12/20/16 17:27 Dose: 3.375 gm Prednisone (Deltasone -) 2.5 mg PO DAILY [facility] Last Admin: 12/20/16 13:08 Dose: 2.5 mg Propranolol HCl (Inderal La -) 80 mg PO DAILY [facility] Last Admin: 12/20/16 13:09 Dose: 80 mg Quetiapine Fumarate (Seroquel -) 200 mg PO DAILY [facility] Last Admin: 12/20/16 11:03 Dose: Not Given Ranitidine HCl (Zantac -) 300 mg PO DAILY [facility] Last Admin: 12/20/16 13:09 Dose: 300 mg Rosuvastatin Calcium (Crestor -) 20 mg PO HS [facility] Last Admin: 12/19/16 21:14 Dose: 20 mg Vital Signs - 24 hr 12/20/16 12/20/16 12/20/16 02:19 06:35 08:46 Temperature 98.2 F 98.3 F 98.1 F Pulse Rate 74 70 78 Respiratory 20 20 16 Rate Blood Pressure 126/70 121/70 144/78 O2 Sat by Pulse Oximetry (%) 12/20/16 12/20/16 12/20/16 09:00 14:48 16:20 Temperature 81 F L 98.8 F Pulse Rate 81 74 Respiratory 18 18 20 Rate Blood Pressure 132/78 133/76 O2 Sat by Pulse 98 Oximetry (%) Intake & Output 12/18/16 12/19/16 12/20/16 12/21/16 07:59 07:59 07:59 07:59 Intake Total 200 3900 4350 700 Balance 200 3900 4350 700 Weight 270 lb nad, calm jvd flat, neck supple ctab, nl effort rrr nl s1, s2 no mrg no ttp of sternum + bs soft nt nd ext with trace edema. no cyanosis/clubbing aaox3 no carotid bruits diminished dp/pt no jaundice, + diaphoresis. CBC, BMP 12/20/16 07:00 12/20/16 07:00 Laboratory Tests 12/20/16 07:00 Creatine Kinase 80 Troponin I < 0.02 Laboratory Tests 12/19/16 11:45 Creatine Kinase 100 Troponin I < 0.02 ekg wnl, no ischemic changes pharm mibi 11/2016: non-specific t wave changes during infusion. small mild reversible inferolateral defect. No tid. EF 54% echo 11/2016: tds. grossly nl lv/rv. 1+ mr stress 2012: 10 METS, no ischemic ekg changes. nl perfusion, nl EF. 31 yo with h/o HL, HTN, obesity, IDDM, RA, childhood asthma p/w worsening LE wound, hospital course complicated by CP CP - atypical for cardiac pain, but patient with significant risk factors and low functional capacity to adequately assess for exertional sx's. Echo wnl. further evaluated with stress test which was positive for mild inferior ischemia (low risk disease). Per patient + reproduction of cp. Given current active infection, will manage medically. Uptitrate anti-anginals. Patient no significant response to SL ntg, per office notes was previously on ranexa with ongoing chest discomfort. --> Will uptitrate propanolol to 120 mg/day. If remains with ongoing chest discomfort then will likely add norvasc if bp tolerates. If patient with ongoing chest discomfort despite 2 anti-anginals then will consider elective cardiac cath as outpatient once infectious issues resolve. Con't asa, statin. - Martha neg x 2 EKG wnl. - ntg prn for CP. Con't propanolol. statin. Would start ASA htn - med adjustment as mentioned, monitor for hypotension. HL - statin. DM - ongoing mgm't per pmd.
[2016-12-20] MEDS: NITROGLYCERIN SUBLINGUAL 1/200 0.3 MG BTL SL PRN (19:04)
[2016-12-20] MEDS ORDERED: ROSUVASTATIN CA 10 MG TABLET (FP) ONE (21:42)
[2016-12-20] MEDS: ROSUVASTATIN CA 20 MG TABLET (FP) PO SCH (21:52)
--- NOTE | 2016-12-21 00:39 | CONSULT ---
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 Patient states that he developed wound May 2016 after stepping on a nail while walking barefoot at home. Wound has progressively worsened and for the past few days has had increased redness/swelling,he has difficulty controlling sugars,despite using insulin pump and [id number] humalin insulin his glucose has always remained high the infection has made it worse. - History Source History Provided By: Patient - Past Medical History Cardio/Vascular: Yes: Hyperlipdemia. No: AFIB, Aneurysm, Aortic Insufficiency, Aortic Stenosis, CAD, CHF, Deep Vein Thrombosis, HTN, DC, Mitral Insufficiency, Mitral Stenosis, Murmur, Pulmonary Hypertension, Other Pulmonary: Yes: Asthma Rheumatology: Yes: Rheumatoid Arthritis Endocrine: Yes: Diabetes Mellitus - Past Surgical History Past Surgical History: Yes: None - Alcohol/Substance Use Hx Alcohol Use: No - Smoking History Smoking history: Never smoked Have you smoked in the past 12 months: No Aproximately how many cigarettes per day: 40 If you are a former smoker, when did you quit?: 2009 - Social History ADL: Independent History of Recent Travel: No Home Medications - Allergies Allergies/Adverse Reactions: Allergies Allergy/AdvReac Type Severity Reaction Status Date / Time No Known Allergies Allergy Verified 12/17/16 20:06 - Home Medications Home Medications: Ambulatory Orders Escitalopram Oxalate [Lexapro -] 20 mg PO DAILY 07/25/15 Bupropion HCl [Wellbutrin Xl] 300 mg PO DAILY 06/03/16 Quetiapine Fumarate [Seroquel] 200 mg PO DAILY 06/03/16 Canagliflozin [Invokana] 100 mg PO DAILY 12/17/16 Insulin NPH Human Isophane [Humulin N] 0 unit SQ DAILY 12/17/16 Lamotrigine 200 mg PO DAILY 12/17/16 Loratadine 10 mg PO DAILY 12/17/16 Metformin HCl [Metformin HCl ER] 1,000 mg PO DAILY 12/17/16 Methotrexate [Mexate -] 2.5 mg PO Q7D 12/17/16 Omeprazole 40 mg PO DAILY 12/17/16 Prednisone [Deltasone -] 2.5 mg PO DAILY 12/17/16 Propranolol HCl 80 mg PO DAILY 12/17/16 Ranitidine HCl 300 mg PO DAILY 12/17/16 Rosuvastatin [Crestor -] 20 mg PO DAILY 12/17/16 Family Disease History - Family Disease History Family Disease History: Heart Disease: Mother Review of Systems - Review of Systems Constitutional: reports: Lethargy, Weakness Eyes: reports: No Symptoms HENT: reports: No Symptoms Neck: reports: No Symptoms Cardiovascular: reports: No Symptoms Respiratory: reports: Exercise Intolerance, SOB on Exertion Gastrointestinal: reports: Bloating, Constipation Genitourinary: reports: No Symptoms Breasts: reports: No Symptoms Reported Musculoskeletal: reports: Extremity Pain, Muscle Pain, Muscle Cramps, Muscle Weakness Integumentary: reports: Wound Physical Exam Vital Signs: Vital Signs Temperature 98.8 F 12/20/16 16:20 Pulse Rate 74 12/20/16 16:20 Respiratory Rate 20 12/20/16 16:20 Blood Pressure 133/76 12/20/16 16:20 O2 Sat by Pulse Oximetry (%) 98 12/20/16 09:00 Constitutional: Yes: Anxious Eyes: Yes: EOM Intact HENT: Yes: Normocephalic Neck: Yes: Trachea Midline Cardiovascular: Yes: Regular Rate and Rhythm Respiratory: Yes: Regular Gastrointestinal: Yes: Normal Bowel Sounds ...Rectal Exam: Yes: Deferred Renal/: Yes: WNL Breast(s): Yes: WNL Musculoskeletal: Yes: Muscle Pain, Muscle Weakness Integumentary: Yes: WNL Wound/Incision: Yes: Dressing Dry and Intact Neurological: Yes: Weakness Psychiatric: Yes: Alert, Oriented Labs: CBC, BMP 12/20/16 07:00 12/20/16 07:00 Problem List - Problems (1) Diabetic foot ulcer Code(s): E11.621 - TYPE 2 DIABETES MELLITUS WITH FOOT ULCER L97.509 - NON-PRESSURE CHRONIC ULCER OTH PRT UNSP FOOT W UNSP SEVERITY Qualifiers: Diabetic foot ulcer location: toe Diabetes mellitus type: type 2 Laterality: left Non-pressure ulcer stage: unspecified non-pressure ulcer stage Qualified Code(s): E11.621 - Type 2 diabetes mellitus with foot ulcer ; L97.509 - Non-pressure chronic ulcer of other part of unspecified foot with unspecified severity (2) Diabetes mellitus, insulin dependent (IDDM), uncontrolled Code(s): E10.65 - TYPE 1 DIABETES MELLITUS WITH HYPERGLYCEMIA Assessment/Plan Current Active Problems Cellulitis (Acute) Chest pain in adult (Acute) Diabetic foot ulcer (Acute) Sepsis (Acute) iddm uncontrolled hyperglycemia Abnormal Lab Results 12/20/16 07:00 Anion Gap 6 L Random Glucose 251 H D Laboratory Results - last 24 hr 12/20/16 12/20/16 12/20/16 06:36 07:00 07:00 WBC 6.6 RBC 4.69 Hgb 13.2 Hct 39.6 MCV 84.5 MCHC 33.4 RDW 15.1 Plt Count 208 MPV 8.1 Neutrophils % 62.5 Lymphocytes % 26.3 D Monocytes % 7.6 Eosinophils % 3.3 Basophils % 0.3 Sodium 136 Potassium 4.5 Chloride 98 Carbon Dioxide 32 Anion Gap 6 L BUN 9 D Creatinine 0.7 POC Glucometer 247 Random Glucose 251 H D Calcium 9.1 Creatine Kinase 80 Troponin I < 0.02 12/20/16 12/20/16 12/20/16 12:23 17:25 21:53 WBC RBC Hgb Hct MCV MCHC RDW Plt Count MPV Neutrophils % Lymphocytes % Monocytes % Eosinophils % Basophils % Sodium Potassium Chloride Carbon Dioxide Anion Gap BUN Creatinine POC Glucometer 290 289 280 Random Glucose Calcium Creatine Kinase Troponin I plan: novolog ac hs coverage higher doses levemir 20 units hs restart insulin pump when available
[2016-12-21] MEDS: PIPERACILLIN/TAZOB 3.375 GM/50 ML PRE-DOCKED IVPB SCH ×2 (02:28→09:14)
[2016-12-21] MEDS: metFORMIN HCL 500 MG TABLET (FP) PO SCH (06:29)
[2016-12-21] MEDS: INSULIN DETEMIR 100 UNITS/ML MDV SQ SCH ×2 (06:29→16:37)
[2016-12-21] MEDS: INSULIN SLIDING SCALE (NOVOLOG) 1 VIAL SQ SCH ×4 (06:30→21:27)
--- NOTE | 2016-12-21 08:32 | PN ---
Progress Note, Physician History of Present Illness: c/o chest pain intermittent last episode last night - Current Medication List Current Medications: Active Medications Acetaminophen (Tylenol -) 650 mg PO Q4H PRN PRN Reason: FEVER OR PAIN Last Admin: 12/19/16 15:39 Dose: 650 mg Aspirin (Ecotrin -) 81 mg PO DAILY [facility] Last Admin: 12/20/16 13:09 Dose: 81 mg Bupropion HCl (Wellbutrin Xl -) 300 mg PO DAILY [facility] Last Admin: 12/20/16 11:03 Dose: Not Given Collagenase (Santyl -) 1 applic TP DAILY [facility] Last Admin: 12/20/16 11:05 Dose: Not Given Escitalopram Oxalate (Lexapro -) 20 mg PO DAILY [facility] Last Admin: 12/20/16 13:08 Dose: 20 mg Heparin Sodium (Porcine) (Heparin -) 5,000 unit SQ BID [facility] Last Admin: 12/20/16 21:52 Dose: 5,000 unit Insulin Aspart (Novolog Vial Sliding Scale -) 1 vial SQ ACHS [facility] PRN Reason: Protocol Last Admin: 12/21/16 06:30 Dose: 9 units Insulin Detemir (Levemir Vial) 20 units SQ BIDI [facility] Last Admin: 12/21/16 06:29 Dose: 20 units Lamotrigine (Lamictal -) 200 mg PO DAILY [facility] Last Admin: 12/20/16 11:02 Dose: Not Given Loratadine (Claritin -) 10 mg PO DAILY [facility] Last Admin: 12/20/16 13:09 Dose: 10 mg Metformin HCl (Glucophage -) 1,000 mg PO AM [facility] Last Admin: 12/21/16 06:29 Dose: 1,000 mg Nitroglycerin (Nitrostat -) 0.3 mg SL Q5M PRN PRN Reason: FOR CHEST PAIN Last Admin: 12/20/16 19:04 Dose: 0.3 mg Pantoprazole Sodium (Protonix -) 40 mg PO DAILY [facility] Last Admin: 12/20/16 13:09 Dose: 40 mg Piperacillin Sod/Tazobactam Sod (Zosyn 3.375gm Ivpb (Pre-Docked)) 3.375 gm IVPB Q8H-IV [facility] PRN Reason: Protocol Last Admin: 12/21/16 02:28 Dose: 3.375 gm Prednisone (Deltasone -) 2.5 mg PO DAILY [facility] Last Admin: 12/20/16 13:08 Dose: 2.5 mg Propranolol HCl (Inderal La -) 120 mg PO DAILY [facility] Quetiapine Fumarate (Seroquel -) 200 mg PO DAILY [facility] Last Admin: 12/20/16 11:03 Dose: Not Given Ranitidine HCl (Zantac -) 300 mg PO DAILY [facility] Last Admin: 12/20/16 13:09 Dose: 300 mg Ranolazine (Ranexa -) 500 mg PO BID [facility] Rosuvastatin Calcium (Crestor -) 20 mg PO HS [facility] Last Admin: 12/20/16 21:52 Dose: 20 mg - Objective Vital Signs: Vital Signs Temperature 98.5 F 12/21/16 06:31 Pulse Rate 70 12/21/16 06:31 Respiratory Rate 20 12/21/16 06:31 Blood Pressure 124/65 12/21/16 06:31 O2 Sat by Pulse Oximetry (%) 98 12/20/16 21:00 Cardiovascular: Yes: Regular Rate and Rhythm Respiratory: Yes: Regular, CTA Bilaterally Gastrointestinal: Yes: Normal Bowel Sounds, Soft Wound/Incision: Yes: Dressing Dry and Intact Labs: CBC, BMP 12/20/16 07:00 12/20/16 07:00 Problem List - Problems (1) Diabetic foot ulcer Assessment/Plan: AWAIT MRI RESULTS IV ABX Code(s): E11.621 - TYPE 2 DIABETES MELLITUS WITH FOOT ULCER L97.509 - NON-PRESSURE CHRONIC ULCER OTH PRT UNSP FOOT W UNSP SEVERITY Qualifiers: Diabetic foot ulcer location: toe Diabetes mellitus type: type 2 Laterality: left Non-pressure ulcer stage: unspecified non-pressure ulcer stage Qualified Code(s): E11.621 - Type 2 diabetes mellitus with foot ulcer ; L97.509 - Non-pressure chronic ulcer of other part of unspecified foot with unspecified severity (2) Chest pain in adult Assessment/Plan: STRESS TEST POSITIVE--CARDIO F/U NOTED RPT CE AND EKG ADD RANEXA CARDIO F/U Code(s): R07.9 - CHEST PAIN, UNSPECIFIED (3) CAD (coronary artery disease) Assessment/Plan: ABOVE Code(s): I25.10 - ATHSCL HEART DISEASE OF [place] CORONARY ARTERY W/O ANG PCTRS (4) Diabetes mellitus, insulin dependent (IDDM), uncontrolled Assessment/Plan: INSULIN PER ENDO Code(s): E10.65 - TYPE 1 DIABETES MELLITUS WITH HYPERGLYCEMIA
[2016-12-21] MEDS ORDERED: PT OWN MED DRAWER 7, Y5N ONE ×2 (09:02→10:30)
[2016-12-21] MEDS: LORATADINE 10 MG TABLET PO SCH (09:05)
[2016-12-21] MEDS: predniSONE 5 MG TABLET (UD) PO SCH (09:08)
[2016-12-21] MEDS: ASPIRIN COATED 81 MG TABLET.EC PO SCH (09:09)
[2016-12-21] MEDS: lamoTRIgine 100 MG TABLET (FP) PO SCH (09:11)
[2016-12-21] MEDS: ESCITALOPRAM OXALATE 20 MG TABLET (FP) PO SCH (09:12)
[2016-12-21] MEDS: PANTOPRAZOLE 40 MG TABLET (FP) PO SCH (09:12)
[2016-12-21] MEDS: QUEtiapine FUMARATE 200 MG TABLET PO SCH (09:13)
[2016-12-21] MEDS: HEPARIN NA (PORCINE) 5,000 UNITS/ML 1ML VIAL SQ SCH ×2 (09:14→21:16)
[2016-12-21] MEDS: RANITIDINE HCL 150 MG TABLET (FP) PO SCH (09:14)
[2016-12-21] MEDS: COLLAGENASE CLOSTRIDIUM HIST. 30 GRAMS TUBE TP SCH (09:22)
[2016-12-21 09:56] LABS: TROPONIN I < 0.02 ng/ml (0.00-0.05)
[2016-12-21] MEDS ORDERED: RANOLAZINE E.R. 500 MG TABLET (FP) PO SCH (10:00)
[2016-12-21] MEDS: NITROGLYCERIN SUBLINGUAL 1/200 0.3 MG BTL SL PRN (10:35)
[2016-12-21] MEDS ORDERED: INSULIN (NOVOLOG) ASPART 100 UNITS/ML 10ML VIAL ONE (11:17)
--- NOTE | 2016-12-21 13:42 | PN ---
Progress Note (short form) - Note Progress Note: no complaints eating lunch Vital Signs Period Temp Pulse Resp BP Sys/Hernandez Pulse Ox Last 24 Hr 81 F-98.8 F 67-81 18-20 103-133/52-78 98 cor-rrr lungs clear dressing tintact on foot MRI with osteo first toe, no abscess noted CBC, BMP 12/20/16 07:00 12/20/16 07:00 Microbiology 12/17/16 17:30 Shoulder - Right Gram Stain - Final 12/17/16 17:30 Shoulder - Right Wound Culture - Preliminary Staphylococcus Aureus Strep Agalactiae Group B Diphtheroid/Corynebacterium Escherichia Coli 12/17/16 17:30 Blood - Peripheral Venous Blood Culture - Preliminary NO GROWTH OBTAINED AFTER 72 HOURS, INCUBATION TO CONTINUE FOR 2 DAYS. 12/17/16 17:00 Blood - Peripheral Venous Blood Culture - Preliminary NO GROWTH OBTAINED AFTER 72 HOURS, INCUBATION TO CONTINUE FOR 2 DAYS. 12/18/16 11:30 Toe - Right Hallux Gram Stain - Final 12/18/16 11:30 Toe - Right Hallux Wound Culture - Final a/p osteomyelitis of the first toe- switch to rocephin iv and po flagyl switched to rocephin iv for total 6 weeks (now day #4) will need picc line on Friday Problem List - Problems (1) Diabetic foot ulcer Code(s): E11.621 - TYPE 2 DIABETES MELLITUS WITH FOOT ULCER L97.509 - NON-PRESSURE CHRONIC ULCER OTH PRT UNSP FOOT W UNSP SEVERITY Qualifiers: Diabetic foot ulcer location: toe Diabetes mellitus type: type 2 Laterality: left Non-pressure ulcer stage: unspecified non-pressure ulcer stage Qualified Code(s): E11.621 - Type 2 diabetes mellitus with foot ulcer; L97.509 - Non-pressure chronic ulcer of other part of unspecified foot with unspecified severity (2) Osteomyelitis due to type 2 diabetes mellitus Code(s): E11.69 - TYPE 2 DIABETES MELLITUS WITH OTHER SPECIFIED COMPLICATION M86.9 - OSTEOMYELITIS, UNSPECIFIED
[2016-12-21] MEDS: metroNIDAZOLE 250 MG TABLET PO SCH ×2 (14:55→21:16)
[2016-12-21] MEDS: cefTRIAXone 2 GM/100 ML BAG (PRE-DOCKED) IVPB SCH (14:56)
--- NOTE | 2016-12-21 20:59 | PN ---
Progress Note (short form) - Note Progress Note: CC: CP S: still with minimal residual chest discomfort. No improvement with sL nitroglycerin or increased propanolol dose. no sob, palps, dizziness Current Medications Acetaminophen (Tylenol -) 650 mg PO Q4H PRN PRN Reason: FEVER OR PAIN Last Admin: 12/19/16 15:39 Dose: 650 mg Aspirin (Ecotrin -) 81 mg PO DAILY [facility] Last Admin: 12/21/16 09:09 Dose: 81 mg Bupropion HCl (Wellbutrin Xl -) 300 mg PO DAILY [facility] Last Admin: 12/21/16 09:13 Dose: 300 mg Ceftriaxone Sodium (Rocephin 2gm Ivpb (Pre-Docked)) 2 gm IVPB DAILY [facility] PRN Reason: Protocol Last Admin: 12/21/16 14:56 Dose: 2 gm Collagenase (Santyl -) 1 applic TP DAILY [facility] Last Admin: 12/21/16 09:22 Dose: 1 applic Escitalopram Oxalate (Lexapro -) 20 mg PO DAILY [facility] Last Admin: 12/21/16 09:12 Dose: 20 mg Heparin Sodium (Porcine) (Heparin -) 5,000 unit SQ BID [facility] Last Admin: 12/21/16 09:14 Dose: 5,000 unit Insulin Aspart (Novolog Vial Sliding Scale -) 1 vial SQ ACHS [facility] PRN Reason: Protocol Last Admin: 12/21/16 16:38 Dose: 15 units Insulin Detemir (Levemir Vial) 20 units SQ BIDI [facility] Last Admin: 12/21/16 16:37 Dose: 20 units Lamotrigine (Lamictal -) 200 mg PO DAILY [facility] Last Admin: 12/21/16 09:11 Dose: 200 mg Loratadine (Claritin -) 10 mg PO DAILY [facility] Last Admin: 12/21/16 09:05 Dose: 10 mg Metformin HCl (Glucophage -) 1,000 mg PO AM [facility] Last Admin: 12/21/16 06:29 Dose: 1,000 mg Metronidazole (Flagyl -) 500 mg PO TID [facility] Last Admin: 12/21/16 14:55 Dose: 500 mg Nitroglycerin (Nitrostat -) 0.3 mg SL Q5M PRN PRN Reason: FOR CHEST PAIN Last Admin: 12/21/16 10:35 Dose: 0.3 mg Pantoprazole Sodium (Protonix -) 40 mg PO DAILY [facility] Last Admin: 12/21/16 09:12 Dose: 40 mg Prednisone (Deltasone -) 2.5 mg PO DAILY [facility] Last Admin: 12/21/16 09:08 Dose: 2.5 mg Propranolol HCl (Inderal La -) 120 mg PO DAILY [facility] Last Admin: 12/21/16 09:11 Dose: 120 mg Quetiapine Fumarate (Seroquel -) 200 mg PO DAILY [facility] Last Admin: 12/21/16 09:13 Dose: 200 mg Ranitidine HCl (Zantac -) 300 mg PO DAILY [facility] Last Admin: 12/21/16 09:14 Dose: 300 mg Ranolazine (Ranexa -) 500 mg PO BID [facility] Last Admin: 12/21/16 09:13 Dose: 500 mg Rosuvastatin Calcium (Crestor -) 20 mg PO HS [facility] Last Admin: 12/20/16 21:52 Dose: 20 mg Vital Signs - 24 hr 12/20/16 12/21/16 12/21/16 21:00 06:31 07:55 Temperature 98.5 F 98.5 F Pulse Rate 70 67 Respiratory 20 20 18 Rate Blood Pressure 124/65 103/52 O2 Sat by Pulse 98 Oximetry (%) 12/21/16 12/21/16 14:26 17:02 Temperature 98.1 F 98.2 F Pulse Rate 85 68 Respiratory 18 20 Rate Blood Pressure 106/66 102/48 O2 Sat by Pulse Oximetry (%) Intake & Output 12/19/16 12/20/16 12/21/16 12/22/16 07:59 07:59 07:59 07:59 Intake Total 3900 4350 750 1700 Balance 3900 4350 750 1700 nad, calm jvd flat, neck supple ctab, nl effort rrr nl s1, s2 no mrg no ttp of sternum + bs soft nt nd ext with trace edema. no cyanosis/clubbing aaox3 no carotid bruits diminished dp/pt no jaundice, + diaphoresis. no CBC, BMP ekg wnl, no ischemic changes pharm mibi 11/2016: non-specific t wave changes during infusion. small mild reversible inferolateral defect. No tid. EF 54% echo 11/2016: tds. grossly nl lv/rv. 1+ mr stress 2013: 10 METS, no ischemic ekg changes. nl perfusion, nl EF. 31 yo with h/o HL, HTN, obesity, IDDM, RA, childhood asthma p/w worsening LE wound, hospital course complicated by CP CP - atypical for cardiac pain, but patient with significant risk factors and low functional capacity to adequately assess for exertional sx's. Echo wnl. further evaluated with stress test which was positive for mild inferior ischemia (low risk disease). Per patient + reproduction of cp. Given current active infection, will manage medically. Uptitrate anti-anginals. Patient no significant response to SL ntg, per office notes was previously on ranexa with ongoing chest discomfort. --> uptitrated propanolol to 120 mg/day. Will add ranexa 1000 mg bid. If patient with ongoing chest discomfort despite 2 anti- anginals then will consider elective cardiac cath as outpatient once infectious issues resolve. Con't asa, statin. - Martha neg x 2 EKG wnl. - ntg prn for CP. htn - running on lower end with increased propanolol dose. monitor for hypotension. HL - statin. DM - ongoing mgm't per pmd.
[2016-12-21] MEDS ORDERED: ROSUVASTATIN CA 10 MG TABLET (FP) ONE (21:10)
[2016-12-21] MEDS: ROSUVASTATIN CA 20 MG TABLET (FP) PO SCH (21:16)
[2016-12-21] MEDS: RANOLAZINE E.R. 500 MG TABLET (FP) PO SCH (21:26)
[2016-12-22] MEDS: metFORMIN HCL 500 MG TABLET (FP) PO SCH (06:01)
[2016-12-22] MEDS: metroNIDAZOLE 250 MG TABLET PO SCH ×3 (06:01→21:09)
[2016-12-22] MEDS: INSULIN DETEMIR 100 UNITS/ML MDV SQ SCH ×2 (06:03→16:41)
[2016-12-22] MEDS: INSULIN SLIDING SCALE (NOVOLOG) 1 VIAL SQ SCH ×4 (06:03→21:19)
[2016-12-22] MEDS ORDERED: PT OWN MED DRAWER 7, Y5N ONE (09:24)
[2016-12-22] MEDS: LORATADINE 10 MG TABLET PO SCH (09:27)
[2016-12-22] MEDS: predniSONE 5 MG TABLET (UD) PO SCH (09:27)
[2016-12-22] MEDS: ASPIRIN COATED 81 MG TABLET.EC PO SCH (09:28)
[2016-12-22] MEDS: ESCITALOPRAM OXALATE 20 MG TABLET (FP) PO SCH (09:29)
[2016-12-22] MEDS: lamoTRIgine 100 MG TABLET (FP) PO SCH (09:29)
[2016-12-22] MEDS: PANTOPRAZOLE 40 MG TABLET (FP) PO SCH (09:29)
[2016-12-22] MEDS: QUEtiapine FUMARATE 200 MG TABLET PO SCH (09:30)
[2016-12-22] MEDS: RANOLAZINE E.R. 500 MG TABLET (FP) PO SCH ×2 (09:30→21:09)
[2016-12-22] MEDS: RANITIDINE HCL 150 MG TABLET (FP) PO SCH (09:31)
[2016-12-22] MEDS: cefTRIAXone 2 GM/100 ML BAG (PRE-DOCKED) IVPB SCH (09:31)
[2016-12-22] MEDS: HEPARIN NA (PORCINE) 5,000 UNITS/ML 1ML VIAL SQ SCH ×2 (09:32→21:09)
--- NOTE | 2016-12-22 10:15 | PN ---
Progress Note, Physician History of Present Illness: c/o chest pain intermittent--LESS last episode last night - Current Medication List Current Medications: Active Medications Acetaminophen (Tylenol -) 650 mg PO Q4H PRN PRN Reason: FEVER OR PAIN Last Admin: 12/19/16 15:39 Dose: 650 mg Aspirin (Ecotrin -) 81 mg PO DAILY [facility] Last Admin: 12/22/16 09:28 Dose: 81 mg Bupropion HCl (Wellbutrin Xl -) 300 mg PO DAILY [facility] Last Admin: 12/22/16 09:31 Dose: 300 mg Ceftriaxone Sodium (Rocephin 2gm Ivpb (Pre-Docked)) 2 gm IVPB DAILY [facility] PRN Reason: Protocol Last Admin: 12/22/16 09:31 Dose: 2 gm Collagenase (Santyl -) 1 applic TP DAILY [facility] Last Admin: 12/21/16 09:22 Dose: 1 applic Escitalopram Oxalate (Lexapro -) 20 mg PO DAILY [facility] Last Admin: 12/22/16 09:29 Dose: 20 mg Heparin Sodium (Porcine) (Heparin -) 5,000 unit SQ BID [facility] Last Admin: 12/22/16 09:32 Dose: 5,000 unit Insulin Aspart (Novolog Vial Sliding Scale -) 1 vial SQ ACHS [facility] PRN Reason: Protocol Last Admin: 12/22/16 06:03 Dose: Not Given Insulin Detemir (Levemir Vial) 20 units SQ BIDI [facility] Last Admin: 12/22/16 06:03 Dose: Not Given Lamotrigine (Lamictal -) 200 mg PO DAILY [facility] Last Admin: 12/22/16 09:29 Dose: 200 mg Loratadine (Claritin -) 10 mg PO DAILY [facility] Last Admin: 12/22/16 09:27 Dose: 10 mg Metformin HCl (Glucophage -) 1,000 mg PO AM [facility] Last Admin: 12/22/16 06:01 Dose: 1,000 mg Metronidazole (Flagyl -) 500 mg PO TID [facility] Last Admin: 12/22/16 06:01 Dose: 500 mg Nitroglycerin (Nitrostat -) 0.3 mg SL Q5M PRN PRN Reason: FOR CHEST PAIN Last Admin: 12/21/16 10:35 Dose: 0.3 mg Pantoprazole Sodium (Protonix -) 40 mg PO DAILY [facility] Last Admin: 12/22/16 09:29 Dose: 40 mg Prednisone (Deltasone -) 2.5 mg PO DAILY [facility] Last Admin: 12/22/16 09:27 Dose: 2.5 mg Propranolol HCl (Inderal La -) 120 mg PO DAILY [facility] Last Admin: 12/22/16 09:28 Dose: 120 mg Quetiapine Fumarate (Seroquel -) 200 mg PO DAILY [facility] Last Admin: 12/22/16 09:30 Dose: 200 mg Ranitidine HCl (Zantac -) 300 mg PO DAILY [facility] Last Admin: 12/22/16 09:31 Dose: 300 mg Ranolazine (Ranexa -) 1,000 mg PO BID [facility] Last Admin: 12/22/16 09:30 Dose: 1,000 mg Rosuvastatin Calcium (Crestor -) 20 mg PO HS [facility] Last Admin: 12/21/16 21:16 Dose: 20 mg - Objective Vital Signs: Vital Signs Temperature 97.8 F 12/22/16 06:57 Pulse Rate 63 12/22/16 06:57 Respiratory Rate 20 12/22/16 06:57 Blood Pressure 102/44 12/22/16 06:57 O2 Sat by Pulse Oximetry (%) 98 12/21/16 21:00 Cardiovascular: Yes: Regular Rate and Rhythm Respiratory: Yes: Regular, CTA Bilaterally Gastrointestinal: Yes: Normal Bowel Sounds, Soft Labs: CBC, BMP 12/20/16 07:00 12/20/16 07:00 Problem List - Problems (1) Diabetic foot ulcer Assessment/Plan: MRI RESULTS--OSTEO--6 WKS ABX IV ABX Code(s): E11.621 - TYPE 2 DIABETES MELLITUS WITH FOOT ULCER L97.509 - NON-PRESSURE CHRONIC ULCER OTH PRT UNSP FOOT W UNSP SEVERITY Qualifiers: Diabetic foot ulcer location: toe Diabetes mellitus type: type 2 Laterality: left Non-pressure ulcer stage: unspecified non-pressure ulcer stage Qualified Code(s): E11.621 - Type 2 diabetes mellitus with foot ulcer; L97.509 - Non-pressure chronic ulcer of other part of unspecified foot with unspecified severity (2) Chest pain in adult Assessment/Plan: STRESS TEST POSITIVE--CARDIO F/U NOTED RPT CE AND EKG ADD RANEXA CARDIO F/U Code(s): R07.9 - CHEST PAIN, UNSPECIFIED (3) CAD (coronary artery disease) Assessment/Plan: ABOVE Code(s): I25.10 - ATHSCL HEART DISEASE OF [place] CORONARY ARTERY W/O ANG PCTRS (4) Diabetes mellitus, insulin dependent (IDDM), uncontrolled Assessment/Plan: INSULIN PER ENDO Code(s): E10.65 - TYPE 1 DIABETES MELLITUS WITH HYPERGLYCEMIA
[2016-12-22] MEDS: COLLAGENASE CLOSTRIDIUM HIST. 30 GRAMS TUBE TP SCH (11:10)
[2016-12-22] MEDS ORDERED: ROSUVASTATIN CA 10 MG TABLET (FP) ONE (20:37)
[2016-12-22] MEDS: ROSUVASTATIN CA 20 MG TABLET (FP) PO SCH (21:09)
--- NOTE | 2016-12-22 21:36 | EKG ---
Test Reason : Blood Pressure : / mmHG Vent. Rate : 075 BPM Atrial Rate : 075 BPM P-R Int : 198 ms QRS Dur : 080 ms QT Int : 378 ms P-R-T Axes : 035 046 057 degrees QTc Int : 422 ms NORMAL SINUS RHYTHM NORMAL ECG WHEN COMPARED WITH ECG OF 19-DEC-2016 11:26, NO SIGNIFICANT CHANGE WAS FOUND Confirmed by LUBNA TROTTER MD ([id number]) on 12/22/2016 9:35:56 PM Referred By: DENISE FLOWERS Confirmed By:LUBNA TROTTER MD
[2016-12-22] MEDS ORDERED: BISACODYL 5 MG TABLET.DR (FP) PO ONE (23:45)
[2016-12-23] MEDS ORDERED: DEXTROSE 50%-WATER 50 ML DISP.SYRIN ONE (04:02)
[2016-12-23] MEDS: metroNIDAZOLE 250 MG TABLET PO SCH ×2 (05:27→15:05)
[2016-12-23] MEDS ORDERED: DEXTROSE 50%-WATER 50 ML DISP.SYRIN IVPB ONE (06:30)
[2016-12-23] MEDS: INSULIN SLIDING SCALE (NOVOLOG) 1 VIAL SQ SCH ×2 (06:50→12:35)
[2016-12-23] MEDS: metFORMIN HCL 500 MG TABLET (FP) PO SCH (06:50)
[2016-12-23] MEDS: INSULIN DETEMIR 100 UNITS/ML MDV SQ SCH (06:50)
[2016-12-23] MEDS: LORATADINE 10 MG TABLET PO SCH (09:38)
[2016-12-23] MEDS: PANTOPRAZOLE 40 MG TABLET (FP) PO SCH (09:38)
[2016-12-23] MEDS: ESCITALOPRAM OXALATE 20 MG TABLET (FP) PO SCH (09:38)
[2016-12-23] MEDS: cefTRIAXone 2 GM/100 ML BAG (PRE-DOCKED) IVPB SCH (09:38)
[2016-12-23] MEDS: RANITIDINE HCL 150 MG TABLET (FP) PO SCH (09:38)
[2016-12-23] MEDS: predniSONE 5 MG TABLET (UD) PO SCH (09:38)
[2016-12-23] MEDS: RANOLAZINE E.R. 500 MG TABLET (FP) PO SCH (09:38)
[2016-12-23] MEDS: ASPIRIN COATED 81 MG TABLET.EC PO SCH (09:39)
[2016-12-23] MEDS: lamoTRIgine 100 MG TABLET (FP) PO SCH (09:40)
[2016-12-23] MEDS: QUEtiapine FUMARATE 200 MG TABLET PO SCH (09:40)
[2016-12-23] MEDS: HEPARIN NA (PORCINE) 5,000 UNITS/ML 1ML VIAL SQ SCH (09:41)
[2016-12-23] MEDS: COLLAGENASE CLOSTRIDIUM HIST. 30 GRAMS TUBE TP SCH (09:42)
--- NOTE | 2016-12-23 10:11 | PN ---
Progress Note, Physician Chief Complaint: ID Ceftriaxone metronidazole Offers no complaint - Current Medication List Current Medications: Active Medications Acetaminophen (Tylenol -) 650 mg PO Q4H PRN PRN Reason: FEVER OR PAIN Last Admin: 12/19/16 15:39 Dose: 650 mg Aspirin (Ecotrin -) 81 mg PO DAILY [facility] Last Admin: 12/23/16 09:39 Dose: Not Given Bupropion HCl (Wellbutrin Xl -) 300 mg PO DAILY [facility] Last Admin: 12/23/16 09:40 Dose: 300 mg Ceftriaxone Sodium (Rocephin 2gm Ivpb (Pre-Docked)) 2 gm IVPB DAILY [facility] PRN Reason: Protocol Last Admin: 12/23/16 09:38 Dose: 2 gm Collagenase (Santyl -) 1 applic TP DAILY [facility] Last Admin: 12/23/16 09:42 Dose: 1 applic Escitalopram Oxalate (Lexapro -) 20 mg PO DAILY [facility] Last Admin: 12/23/16 09:38 Dose: 20 mg Heparin Sodium (Porcine) (Heparin -) 5,000 unit SQ BID [facility] Last Admin: 12/23/16 09:41 Dose: Not Given Insulin Aspart (Novolog Vial Sliding Scale -) 1 vial SQ ACHS [facility] PRN Reason: Protocol Last Admin: 12/23/16 06:50 Dose: Not Given Insulin Detemir (Levemir Vial) 20 units SQ BIDI [facility] Last Admin: 12/23/16 06:50 Dose: Not Given Lamotrigine (Lamictal -) 200 mg PO DAILY [facility] Last Admin: 12/23/16 09:40 Dose: 200 mg Loratadine (Claritin -) 10 mg PO DAILY [facility] Last Admin: 12/23/16 09:38 Dose: 10 mg Metformin HCl (Glucophage -) 1,000 mg PO AM [facility] Last Admin: 12/23/16 06:50 Dose: Not Given Metronidazole (Flagyl -) 500 mg PO TID [facility] Last Admin: 12/23/16 05:27 Dose: 500 mg Nitroglycerin (Nitrostat -) 0.3 mg SL Q5M PRN PRN Reason: FOR CHEST PAIN Last Admin: 12/21/16 10:35 Dose: 0.3 mg Pantoprazole Sodium (Protonix -) 40 mg PO DAILY [facility] Last Admin: 12/23/16 09:38 Dose: 40 mg Prednisone (Deltasone -) 2.5 mg PO DAILY [facility] Last Admin: 12/23/16 09:38 Dose: 2.5 mg Propranolol HCl (Inderal La -) 120 mg PO DAILY [facility] Last Admin: 12/23/16 09:40 Dose: 120 mg Quetiapine Fumarate (Seroquel -) 200 mg PO DAILY [facility] Last Admin: 12/23/16 09:40 Dose: 200 mg Ranitidine HCl (Zantac -) 300 mg PO DAILY [facility] Last Admin: 12/23/16 09:38 Dose: 300 mg Ranolazine (Ranexa -) 1,000 mg PO BID [facility] Last Admin: 12/23/16 09:38 Dose: 1,000 mg Rosuvastatin Calcium (Crestor -) 20 mg PO HS [facility] Last Admin: 12/22/16 21:09 Dose: 20 mg - Objective Vital Signs: Vital Signs Temperature 97.5 F L 12/23/16 06:00 Pulse Rate 70 12/23/16 06:00 Respiratory Rate 20 12/23/16 06:00 Blood Pressure 107/72 12/23/16 06:00 O2 Sat by Pulse Oximetry (%) 98 12/22/16 21:00 Constitutional: Yes: Well Nourished, No Distress HENT: Yes: WNL, Atraumatic Neck: Yes: WNL, Supple Cardiovascular: Yes: Regular Rate and Rhythm, S1, S2 Respiratory: Yes: WNL, Regular, CTA Bilaterally Gastrointestinal: Yes: Soft. No: Tenderness Extremities: Yes: Other (Right foot dressing) Labs: CBC, BMP 12/20/16 07:00 12/20/16 07:00 Assessment/Plan Microbiology 12/18/16 11:30 Toe - Right Hallux Gram Stain - Final 12/18/16 11:30 Toe - Right Hallux Wound Culture - Final 12/17/16 17:30 Shoulder - Right Gram Stain - Final 12/17/16 17:30 Shoulder - Right Wound Culture - Final Staphylococcus Aureus Strep Agalactiae Group B Diphtheroid/Corynebacterium Escherichia Coli Laboratory Tests 12/19/16 12/20/16 07:00 07:00 WBC 6.6 Hgb 13.2 Plt Count 208 ESR 22 H Assessment Treat for osteo as suggested Plan Finish 6 weeks antibiotics PICC today then home today
[2016-12-23 13:18] VITALS: BP 132/74; PULSE 79; TEMP 98.1
== END 2016-12-23 15:03 | disposition home health service (06) | DRG 344 ==
LOC: JER 17:19 → JERBED 21:56 → UNDOADMIN 23:29 → J8W 12-18 01:04
PROVIDERS: ADMIT Family Medicine; ATTEND Family Medicine
DX: E11.621 Type 2 diabetes mellitus with foot ulcer (principal); L03.032 Cellulitis of left toe; E10.65 Type 1 diabetes mellitus with hyperglycemia; I25.10 Atherosclerotic heart disease of native coronary artery without angina pectoris; I10 Essential (primary) hypertension; E78.5 Hyperlipidemia, unspecified; E11.69 Type 2 diabetes mellitus with other specified complication; M86.8X7 Other osteomyelitis, ankle and foot; R07.89 Other chest pain; E66.9 Obesity, unspecified; Z68.36 Body mass index [BMI] 36.0-36.9, adult; L97.509 Non-pressure chronic ulcer of other part of unspecified foot with unspecified severity; J45.909 Unspecified asthma, uncomplicated
CPT/HCPCS: 36415; 36569; 73630-TC-RT; 73718-TC; 77001-TC; 78452-TC; 80048; 80053; 80061; 82550; 83036; 83605; 83721; 84484; 85025; 85027; 85651; 86140; 87040; 87070; 87077; 87186; 87205; 93005; 93010; 93017; 93306-TC; 97116-GP; 97161-GP; 99283-25; A9502; C1751; G0480; J1245; J1644

== ENCOUNTER 2016-12-29 13:31 | Emergency (ER) | payer OTHER ==
--- NOTE | 2016-12-29 13:48 | PDOC ---
History of Present Illness - General History Source: EMS, Family, Old Records Exam Limitations: No Limitations <Nina Langley - Last Filed: 12/29/16 13:55> - General History Source: Patient, Spouse, Old Records Exam Limitations: Clinical Condition - History of Present Illness Initial Comments: 12/29/16 14:02 The patient is a 31 year old male, accompanied by , with a past medical history of diabetes, bipolar disorder, and peripheral neuropathy, who presents to the emergency department today with altered mental status. states that yesterday the patient was completely normal. This morning the patient woke up at 7:30 and had breakfast with his children. states, at breakfast the patients eyes were open but the patient was not responding verbally. The patient went to sleep, woke up at lunch, and then went back to sleep and has not been responding since. The notes that the patient took an uncycled dose of Seroquel 400 mg. The patient is currently on a cycle of ceftriaxone and amoxicillin to treat osteomyelitis of first distal phalanx. PCP: Dr. Carpenter [phone] <Cristopher Briceño - Last Filed: 12/29/16 14:02> <Stella Koo - Last Filed: 12/29/16 18:09> - General Stated Complaint: OVERDOSE Time Seen by Provider: 12/29/16 13:48 Past History - Past Medical History Anemia: No Asthma: Yes Diabetes: Yes (IDDM/INSULIN PUMP) Hypercholesterolemia: Yes Psychiatric Problems: Yes (depression/anxiety/BIPOLAR) Suicide Attempt (Hx): No - Surgical History Orthopedic Surgery: Yes (07/14 right knee arthroscopy) - Immunization History Immunization Up to Date: Yes - Psycho/Social/Smoking Cessation Hx Anxiety: Yes Suicidal Ideation: No Smoking Status: No Smoking History: Never smoked Have you smoked in the past 12 months: No Number of Cigarettes Smoked Daily: 40 If you are a former smoker, when did you quit?: 2009 Hx Alcohol Use: No Drug/Substance Use Hx: No Substance Use Type: None Hx Substance Use Treatment: No <Nina Langley - Last Filed: 12/29/16 13:55> <Cristopher Briceño - Last Filed: 12/29/16 14:02> <Stella Koo - Last Filed: 12/29/16 18:09> - Past Medical History Allergies/Adverse Reactions: Allergies Allergy/AdvReac Type Severity Reaction Status Date / Time No Known Allergies Allergy Verified 12/29/16 13:54 Home Medications: Ambulatory Orders Escitalopram Oxalate [Lexapro -] 20 mg PO DAILY 07/25/15 Bupropion HCl [Wellbutrin Xl] 300 mg PO DAILY 06/03/16 Quetiapine Fumarate [Seroquel] 200 mg PO DAILY 06/03/16 Canagliflozin [Invokana] 100 mg PO DAILY 12/17/16 Insulin NPH Human Isophane [Humulin N] 0 unit SQ DAILY 12/17/16 Lamotrigine 200 mg PO DAILY 12/17/16 Loratadine 10 mg PO DAILY 12/17/16 Metformin HCl [Metformin HCl ER] 1,000 mg PO DAILY 12/17/16 Methotrexate [Mexate -] 2.5 mg PO Q7D 12/17/16 Omeprazole 40 mg PO DAILY 12/17/16 Prednisone [Deltasone -] 2.5 mg PO DAILY 12/17/16 Propranolol HCl 80 mg PO DAILY 12/17/16 Ranitidine HCl 300 mg PO DAILY 12/17/16 Rosuvastatin [Crestor -] 20 mg PO DAILY 12/17/16 Acetaminophen [Tylenol .Regular Strength -] 650 mg PO Q4H PRN #0 tablet Collagenase Clostridium Hist. [Santyl -] 1 applic TP DAILY #1 tube 12/23/16 Metronidazole [Flagyl -] 500 mg PO TID #90 tablet 12/23/16 Nitroglycerin Sublingual [Nitrostat -] 0.3 mg SL Q5M PRN #90 tab 12/23/16 Review of Systems - Review of Systems Able to Perform ROS?: Yes Comments:: 12/29/16 14:03 CONSTITUTIONAL: Absent: fever, chills, diaphoresis, generalized weakness, malaise, loss of appetite HEENT: Absent: rhinorrhea, nasal congestion, throat pain, throat swelling, difficulty swallowing, mouth swelling, ear pain, eye pain, visual Changes CARDIOVASCULAR: Absent: chest pain, syncope, palpitations, irregular heart rate, lightheadedness , peripheral edema RESPIRATORY: Absent: cough, shortness of breath, dyspnea with exertion, orthopnea, wheezing, stridor, hemoptysis GASTROINTESTINAL: Absent: abdominal pain, abdominal distension, nausea, vomiting, diarrhea, constipation, melena, hematochezia GENITOURINARY: Absent: dysuria, frequency, urgency, hesitancy, hematuria, flank pain, genital pain MUSCULOSKELETAL: Absent: myalgia, arthralgia, joint swelling SKIN: Absent: rash, itching, pallor HEMATOLOGIC/IMMUNOLOGIC: Absent: easy bleeding, easy bruising, lymphadenopathy, frequent infections ENDOCRINE: Absent: unexplained weight gain, unexplained weight loss, heat intolerance, cold intolerance NEUROLOGIC: Present: Altered mental status Absent: headache, focal weakness or paresthesias, dizziness, unsteady gait, seizure, bladder or bowel incontinence PSYCHIATRIC: Absent: anxiety, depression, suicidal or homicidal ideation, hallucinations. <Cristopher Briceño - Last Filed: 12/29/16 14:02> *Physical Exam - Vital Signs Last Vital Signs Temp Pulse Resp BP Pulse Ox 98.6 F 116 H 22 142/92 95 12/29/16 13:49 12/29/16 13:49 12/29/16 13:49 12/29/16 13:49 12/29/16 13:49 - Physical Exam Comments: 12/29/16 14:03 GENERAL: Well developed, well nourished. Awake and alert. In no acute distress. HEENT: Normocephalic, atraumatic. PERRLA, EOMI. No conjunctival pallor. Sclera are non- icteric. Moist mucous membranes. Oropharynx is clear. NECK: Supple. Full ROM. No JVD. Carotid pulses 2+ and symmetric, without bruits. No thyromegaly. No lymphadenopathy. CARDIOVASCULAR: Regular rate and rhythm. No murmurs, rubs, or gallops. Distal pulses are 2+ and symmetric. PULMONARY: No evidence of respiratory distress. Lungs clear to auscultation bilaterally. No wheezing, rales or rhonchi. ABDOMINAL: Soft. Non-tender. Non-distended. No rebound or guarding. No organomegaly. Normoactive bowel sounds. MUSCULOSKELETAL Normal range of motion at all joints. No bony deformities or tenderness. No CVA tenderness. EXTREMITIES: (+) No cyanosis. No clubbing. No edema. No calf tenderness. Great right toe ulcer measuring 1 x 1 cm to plantar surface with surrounding erythema. SKIN: Warm and dry. Normal capillary refill. No rashes. No jaundice. NEUROLOGICAL: Patient minimally responsive to sternal rub PSYCHIATRIC: Cooperative. Good eye contact. Appropriate mood and affect. <Cristopher Briceño - Last Filed: 12/29/16 14:02> - Vital Signs Last Vital Signs Temp Pulse Resp BP Pulse Ox 98.6 F 108 H 18 141/78 98 12/29/16 13:49 12/29/16 16:24 12/29/16 16:24 12/29/16 16:24 12/29/16 16:24 <Stella Koo - Last Filed: 12/29/16 18:09> ED Treatment Course - LABORATORY CBC & Chemistry Diagram: 12/29/16 14:00 12/29/16 14:00 - ADDITIONAL ORDERS Additional order review: Laboratory Results 12/29/16 12/29/16 12/29/16 14:24 14:24 14:00 Sodium Potassium Chloride Carbon Dioxide Anion Gap BUN Creatinine Creat Clearance w eGFR Random Glucose Lactic Acid Calcium Total Bilirubin AST ALT Alkaline Phosphatase Creatine Kinase Troponin I C-Reactive Protein Total Protein Albumin Urine Color Straw Urine Appearance Clear Urine pH 5.0 Urine Protein Negative Urine Glucose (UA) 3+ H Urine Ketones Negative Urine Blood Negative Urine Nitrite Negative Urine Bilirubin Negative Urine Urobilinogen Negative Ur Leukocyte Esterase Negative Opiates Screen Negative Methadone Screen Negative Barbiturate Screen Negative Phencyclidine Screen Negative Ur Amphetamines Screen Negative MDMA (Ecstasy) Screen Positive Benzodiazepines Screen Negative Cocaine Screen Negative U Marijuana (THC) Screen Negative Alcohol, Quantitative < 5.0 Acetone, Qual 12/29/16 12/29/16 12/29/16 14:00 14:00 13:55 Sodium 139 Potassium 3.6 Chloride 100 Carbon Dioxide 29 Anion Gap 10 BUN 12 D Creatinine 0.8 Creat Clearance w eGFR > 60 Random Glucose 366 H* D Lactic Acid 1.9 Calcium 8.6 Total Bilirubin 0.2 D AST 18 D ALT 43 D Alkaline Phosphatase 86 Creatine Kinase 88 Troponin I < 0.02 C-Reactive Protein 1.9 H D Total Protein 7.0 Albumin 3.6 Urine Color Urine Appearance Urine pH Urine Protein Urine Glucose (UA) Urine Ketones Urine Blood Urine Nitrite Urine Bilirubin Urine Urobilinogen Ur Leukocyte Esterase Opiates Screen Methadone Screen Barbiturate Screen Phencyclidine Screen Ur Amphetamines Screen MDMA (Ecstasy) Screen Benzodiazepines Screen Cocaine Screen U Marijuana (THC) Screen Alcohol, Quantitative Acetone, Qual Negative 12/29/16 14:00 RBC 4.83 MCV 84.8 MCHC 33.3 RDW 15.6 MPV 7.7 Neutrophils % 63.6 Lymphocytes % 26.0 Monocytes % 6.6 Eosinophils % 2.8 Basophils % 1.0 D - Medications Given in the ED: ED Medications Discontinued Medications Generic Name Dose Route Start Last Admin Trade Name Tone PRN Reason Stop Dose Admin Sodium Chloride 1,000 mls @ 1,000 mls/hr 12/29/16 13:49 12/29/16 14:41 Normal Saline - IV 12/29/16 14:48 1,000 mls/hr ASDIR STA Administration Sodium Chloride 1,000 mls @ 1,000 mls/hr 12/29/16 16:02 12/29/16 16:08 Normal Saline - IV 12/29/16 17:01 1,000 mls/hr ASDIR STA Administration <Stella Koo - Last Filed: 12/29/16 18:09> Medical Decision Making - Medical Decision Making 12/29/16 13:55 31-year-old male with history of diabetes, rheumatoid arthritis, bipolar disorder, peripheral neuropathy and osteomyelitis of the first distal phalanx of the great toe on the right foot presents the emergency department with his who states that he's had altered mental status since this morning appearing to be more somnolent; she reports that he has taken an extra dose of Seroquel. The patient is tachycardic into the 110 range. Differential diagnosis includes but is not limited to: Sepsis, infection, DKA, uncontrolled diabetes, dehydration, electrolyte abnormality, toxic/metabolic derangement, intoxication. Plan: 1. Labs and drug screen 2. EKG 3. IV fluids for hydration 4. Chest x-ray 5. CT head 6. Observe and reevaluate <Nina Langley - Last Filed: 12/29/16 13:55> - Medical Decision Making 12/29/16 18:08 assumed care of pt at 4 pm, briefly here with episode of AMS, and tachycardia. now at baseline. u tox positive for ecstasy which pt denies. heart rate improved to 99 after two liters, and sugar now 186. pt states compliant with his insulin. advised to follow up with psychiatrist and given phone number for [facility] should he like detox for substance use. [email or web address] <Stella Koo - Last Filed: 12/29/16 18:09> *DC/Admit/Observation/Transfer - Attestations Physician Attestion: 12/29/16 13:57 I, Dr. Nina Langley, attest that the scribes documentation that appears above has been prepared under my direction and personally reviewed by me in its entirety. I confirmed that the note above accurately reflects all work, treatment, procedures, and medical decision-making performed by me. <Nina Langley - Last Filed: 12/29/16 13:55> - Attestations Scribe Attestion: 12/29/16 14:03 Documentation prepared by Cristopher Briceño, acting as director of medical review for Nina Langley MD. <Cristopher Briceño - Last Filed: 12/29/16 14:02> - Discharge Dispostion Admit: No <Stella Koo - Last Filed: 12/29/16 18:09> Diagnosis at time of Disposition: Altered mental status - Referrals Referrals: Hailee Carpenter [Primary Care Provider] - - Patient Instructions Printed Discharge Instructions: Getting Treatment for Drug Addiction Additional Instructions: you should follow up with your psychiatrist. call to schedule. if you are interested in seeking help for your drug use you can call [facility] at [phone]. return for any problems or concerns.
[2016-12-29] MEDS ORDERED: SODIUM CHLORIDE 1,000 ML IV STA ×2 (13:49→16:02)
[2016-12-29 13:57] VITALS: BMI 36.2
[2016-12-29 14:08] LABS: EOSINOPHIL 2.8 % (0-4.5); MCH 28.2 pg (25.7-33.7); MCHC 33.3 g/dl (32.0-35.9); MEAN CELL VOLUME 84.8 fl (80-96); MEAN PLT VOLUME 7.7 fl (7.5-11.1); NEUTROPHILS 63.6 % (42.8-82.8); PLATELET COUNT 195 K/MM3 (134-434); RDW 15.6 % (11.9-15.9); WHITE BLOOD COUNT 5.7 K/mm3 (4.0-10.0)
[2016-12-29 14:27] LABS: ALBUMIN 3.6 g/dl (3.4-5.0); ANION GAP 10 (8-16); BILIRUBIN,TOTAL 0.2 mg/dL (0.2-1.0); CALCIUM 8.6 mg/dL (8.5-10.1); CO2 29 mmol/L (21-32); CREATININE 0.8 mg/dL (0.7-1.3); SGOT/AST 18 U/L (15-37); SGPT/ALT 43 U/L (12-78)
[2016-12-29 14:29] LABS: ALK PHOS 86 U/L (45-117); TROPONIN I < 0.02 ng/ml (0.00-0.05)
[2016-12-29 14:31] LABS: GLUCOSE,RANDOM 366 mg/dL (74-106)
[2016-12-29 14:37] LABS: URINE APPEARANCE CLEAR; URINE BILIRUBIN NEGATIVE (NEGATIVE); URINE BLOOD NEGATIVE (NEGATIVE); URINE COLOR STRAW; URINE GLUCOSE (UA) 3+ (NEGATIVE); URINE KETONE NEGATIVE (NEGATIVE); URINE LEUK ESTERASE NEGATIVE (NEGATIVE); URINE NITRITE NEGATIVE (NEGATIVE); URINE PROTEIN NEGATIVE (NEGATIVE); URINE UROBILINOGEN NEGATIVE E.U./dl (0.2-1.0)
[2016-12-29 14:43] LABS: URINE MARIJUANA THC NEGATIVE ng/ml (CUTOFF=50)
[2016-12-29 15:23] LABS: ACETONE SERUM NEGATIVE (NEGATIVE)
--- NOTE | 2016-12-29 17:26 | EKG ---
Test Reason : Blood Pressure : / mmHG Vent. Rate : 113 BPM Atrial Rate : 113 BPM P-R Int : 170 ms QRS Dur : 080 ms QT Int : 332 ms P-R-T Axes : 046 079 058 degrees QTc Int : 455 ms SINUS TACHYCARDIA CANNOT RULE OUT ANTERIOR INFARCT , AGE UNDETERMINED ABNORMAL ECG WHEN COMPARED WITH ECG OF 21-DEC-2016 08:54, VENT. RATE HAS INCREASED BY 38 BPM Confirmed by MARY KAY FELIX, TAJ ([id number]) on 12/29/2016 5:25:34 PM Referred By: Confirmed By:TAJ MUÑIZ MD
[2016-12-29 18:11] VITALS: BP 128/77; PULSE 99; TEMP 98
== END 2016-12-29 18:19 | disposition home or self-care (01) ==
LOC: JER 13:31
PROC: 3E0337Z Introduction of Electrolytic and Water Balance Substance into Peripheral Vein, Percutaneous Approach (ICD-10-PCS; principal; 2016-12-29)
DX: R41.82 Altered mental status, unspecified (principal); E11.9 Type 2 diabetes mellitus without complications; Z79.4 Long term (current) use of insulin; Z79.84 Long term (current) use of oral hypoglycemic drugs; Z96.41 Presence of insulin pump (external) (internal); F41.9 Anxiety disorder, unspecified; F31.9 Bipolar disorder, unspecified; J45.909 Unspecified asthma, uncomplicated; E78.00 Pure hypercholesterolemia, unspecified; M86.8X7 Other osteomyelitis, ankle and foot
CPT/HCPCS: 36415; 70450-TC; 71010-TC; 80053; 80307; 81003; 82009; 82550; 83605; 84484; 85025; 85651; 86140; 93005; 93010; 96360; 96361; 99285-25; G0480